=== PATIENT | female | born 1995 | race Caucasian/White ===

== ENCOUNTER → 2017-09-14 11:36 | Outpatient (CLI) | payer OTHER, SELFPAY ==
--- NOTE | 2017-09-14 11:37 | DI.US.S_ITS ---
PROCEDURE: US PELVIC COMPLETE INDICATIONS: PAIN; ENLARGED LEFT OVARY TECHNIQUE: Real-time scanning was performed of the pelvic organs, with image documentation. Additional endovaginal scanning was necessary due to incomplete visualization of the adnexal and endometrial structures by transabdominal scanning. COMPARISON: None. FINDINGS: Transabdominal scanning: Limited scanning through the kidneys shows no hydronephrosis. No pathologic free abdominal or pelvic fluid. Endovaginal scanning: Uterus: Uterus is normal in size at 7.2 x 5.4 x 4.5 cm. The endometrium measures 15.6mm in combined thickness. Ovaries: Normal bilaterally measuring 4.1 x 2.8 x 2.2 cm on the right and 2.9 x 2.3 x 1.4 cm on the left. Several small follicular cysts. IMPRESSION: Normal exam. Dictated by: Garrett HER Interpreted: Krishan Delatorre MD on 09/14/2017 at 13:01 Approved by: Krishan Delatorre M.D. on 09/14/2017 at 14:18
== END ==
PROVIDERS: Family Provider Family Medicine; PCP Family Medicine; Visit Provider Physician Assistant
DX: N83.8 Other noninflammatory disorders of ovary, fallopian tube and broad ligament (principal); R10.2 Pelvic and perineal pain
CPT/HCPCS: 76830; 76856

== ENCOUNTER 2017-09-16 16:14 | Emergency (ER) | payer OTHER, SELFPAY ==
[2017-09-16 16:18] VITALS: BP 103/62; PULSE 86; RESP 18; TEMP 36.7; O2SAT 100
--- NOTE | 2017-09-16 16:29 | ED.FEMALEGU ---
HPI - Female Genitourinary <Altagracia Fox PA-C - Last Filed: 09/16/17 20:44> General Chief complaint: Urogenital-Female Stated complaint: Kidney stones Time Seen by Provider: 09/16/17 16:28 Source: patient Mode of arrival: ambulatory Limitations: no limitations History of Present Illness HPI Narrative: This 21-year-old female was sent by the walk-in clinic apparently for further evaluation of micro hematuria. She complains of 3-4 days of suprapubic area pain with dysuria, frequency, and urgency. She has not seen any blood in the urine. She denies any flank pain. She denies any new fever. She has had some ongoing intermittent nausea and dizziness for the last couple of months but none currently. She has also had some intermittent right upper quadrant pain in the last month which she does not have now. She does not have vomiting. She denies any possibility of or STD concerns (she states last test for both were 2 weeks ago and she has not been sexually active since then). She states that she has some white vaginal discharge and has slight itching. She denies any other new complaints on systems review. She does have a family history of cystinuria in her father. Related Data Previous Rx's Medication Instructions Recorded citalopram [Celexa] 10 mg PO QDAY #90 tab 06/21/17 divalproex [Depakote] 750 mg PO QDAY #270 tab 06/21/17 meclizine 25 mg tablet 25 mg PO QID PRN #30 tab 08/03/17 nitrofurantoin monohyd/m-cryst 1 cap PO Q12H 5 Days #10 cap 09/16/17 [Macrobid] phenazopyridine [Pyridium] 200 mg PO Q8H PRN #6 tab 09/16/17 Allergies Allergy/AdvReac Type Severity Reaction Status Date / Time clonazepam [CLONAZEPAM] Allergy Unknown REACTION Verified 09/16/17 16:15 WHEN TAKING FOR SEIZURES topiramate [From TOPAMAX] Allergy Unknown REACTION Verified 09/16/17 16:15 WHEN TAKING FOR SEIZURES Review of Systems <Altagracia Fox PA-C - Last Filed: 09/16/17 20:44> Review of Systems All systems reviewed & are unremarkable except as noted in HPI and below Exam <Altagracia Fox PA-C - Last Filed: 09/16/17 20:44> Narrative Exam Narrative: GENERAL APPEARANCE: Patient sitting comfortably, in no distress, appears well. HEENT: EOMI, conjunctiva pink NECK: Supple LUNGS: Clear to auscultation bilaterally. HEART: Rate and rhythm regular without murmur, normal S1 and S2, no S3 or S4. ABDOMEN: Soft, ND, +BS x 4 quadrants, no CVAT. Localized suprapubic tenderness without guarding or rebound Initial Vital Signs Initial Vital Signs: Vital Signs Temperature 98.1 F 09/16/17 16:18 Pulse Rate 86 09/16/17 16:18 Respiratory Rate 18 09/16/17 16:18 Blood Pressure 103/62 09/16/17 16:18 Pulse Oximetry 100 09/16/17 16:18 <Lisbeth Zavala DO - Last Filed: 09/17/17 08:54> Initial Vital Signs Initial Vital Signs: Vital Signs Temperature 98.1 F 09/16/17 16:18 Pulse Rate 86 09/16/17 16:18 Respiratory Rate 18 09/16/17 16:18 Blood Pressure 103/62 09/16/17 16:18 Pulse Oximetry 100 09/16/17 16:18 Course <BELLE Walker Last Filed: 09/16/17 20:44> Orders Ordered: ED Orders 09/16/17 16:19 Urine Culture Stat Urine Microscopic Stat Vital Signs - 8 hr 09/16/17 16:18 09/16/17 17:43 Temperature 98.1 F Pulse Rate 86 77 Respiratory Rate 18 16 Blood Pressure 103/62 Blood Pressure [Left Arm] 101/54 L Pulse Oximetry 100 100 <Lisbeth Zavala DO - Last Filed: 09/17/17 08:54> Orders Ordered: ED Orders 09/16/17 16:19 Urine Culture Stat Urine Microscopic Stat Vital Signs - 8 hr 09/16/17 16:18 09/16/17 17:43 Temperature 98.1 F Pulse Rate 86 77 Respiratory Rate 18 16 Blood Pressure 103/62 Blood Pressure [Left Arm] 101/54 L Pulse Oximetry 100 100 MDM - Female Genitourinary <BELLE Walker Last Filed: 09/16/17 20:44> Lab Data Attestation: I reviewed the patient's lab results. Lab Results 09/16/17 Range/Units 16:19 Urine RBC 10-30/hpf H (0-5/HPF) Urine WBC 5-10/hpf H (0-5/HPF) Ur Squamous Epith Cells 1-5 /hpf Ur Renal Epithelial Cell 0-1/hpf Amorphous Sediment 1+ Urine Bacteria Occasional (0-1) (None) Ur Culture Indicated? Specimen cultured Micro UA Comment Not Reportable <Lisbeth Zavala, - Last Filed: 09/17/17 08:54> Lab Data Lab Results 09/16/17 Range/Units 16:19 Urine RBC 10-30/hpf H (0-5/HPF) Urine WBC 5-10/hpf H (0-5/HPF) Ur Squamous Epith Cells 1-5 /hpf Ur Renal Epithelial Cell 0-1/hpf Amorphous Sediment 1+ Urine Bacteria Occasional (0-1) (None) Ur Culture Indicated? Specimen cultured Micro UA Comment Not Reportable Discharge Plan Departure Patient Disposition: Home, Self-Care Clinical Impression: UTI (urinary tract infection) Discharge Date/Time: 09/16/17 17:48 Interventions: ED Discharge Assessment Last Done: 09/16/17 17:48 Instructions: DI for Urinary Tract Infection (UTI) Activity Restrictions/Additional Instructions: Return if you are feeling acutely worse as we talked about. You can use the bladder pain medicine for the next couple of days while you start the antibiotic. Also start an ajkw-juh-sqarrry medicine for yeast infection such as miconazole. You should follow up with your PCP in a few days to review cultures, and also discuss your ongoing abdominal pain, nausea, and dizziness that you have had off and on for the last couple of months. Prescriptions: New nitrofurantoin monohyd/m-cryst [Macrobid] 100 mg capsule 1 cap PO Q12H 5 Days Qty: 10 RF: 0 phenazopyridine [Pyridium] 200 mg tablet 200 mg PO Q8H PRN (Reason: pain) Qty: 6 RF: 0 No Action meclizine 25 mg tablet 25 mg PO QID PRN (Reason: vertigo) Qty: 30 RF: 1 citalopram [Celexa] 10 MG tablet 10 mg PO QDAY Qty: 90 RF: 1 divalproex [Depakote] 250 MG tablet,delayed release (DR/EC) 750 mg PO QDAY Qty: 270 RF: 1 Referrals: Samia Moore DO [Primary Care Provider] - <Lisbeth Zavala DO - Last Filed: 09/17/17 08:54> Cosign ED Attending Cosignature Attestation: I was immediately available in the department for consultation. Documentation has been reviewed. I agree with assessment and plan.
[2017-09-16 17:16] LABS: Amorphous Sediment Urine 1+; Bacteria Urine Occasional (0-1); Culture Indicated Urine Specimen Cultured; RBC Urine 10-30/HPF (0-5/HPF); Renal Epithelial Cells Urine 0-1/HPF; Squamous Epithelial Cell Urine 1-5 /HPF; WBC Urine 5-10/HPF (0-5/HPF)
[2017-09-16 17:43] VITALS: BP 101/54; PULSE 77; RESP 16; O2SAT 100
== END 2017-09-16 17:50 | disposition home or self-care (01) ==
LOC: ED 17:49
PROVIDERS: Emergency Provider Internal Medicine; Family Provider Family Medicine; PCP Family Medicine
DX: N39.0 Urinary tract infection, site not specified (principal)
CPT/HCPCS: 81003; 81015; 81025; 87086; 99282

== ENCOUNTER → 2017-09-19 11:40 | Outpatient (CLI) | payer OTHER, SELFPAY | PROVIDERS: Family Provider Family Medicine; PCP Family Medicine; Visit Provider Physician Assistant | DX: N39.0 Urinary tract infection, site not specified (principal); Z53.9 Procedure and treatment not carried out, unspecified reason | CPT/HCPCS: 87086 ==

== ENCOUNTER → 2017-09-19 17:16 | Outpatient (CLI) | payer OTHER, SELFPAY ==
--- NOTE | 2017-09-19 17:20 | DI.RAD.S_ITS ---
PROCEDURE: XR ABDOMEN MIN 2V INDICATIONS: Possible kidney stone RLQ/flank pain low back pain R side TECHNIQUE: 2 views of the abdomen were acquired. COMPARISON: None. FINDINGS: Surgical changes and devices: None. Bowel: No pneumoperitoneum. The bowel gas pattern is normal except for mild to moderate colonic obstipation. Soft tissues: No masses; visualized solid organ contours appear normal in size. No suspicious abdominal calcifications. There is a right-sided small apparent phlebolith adjacent to the right ischial spine. Bones: No suspicious bony abnormalities. IMPRESSION: Mild to moderate colonic obstipation. What appears to be a 1.5 x 2 mm right pelvic phlebolith is noted adjacent to the right ischial spine. Dictated by: Krishan Delatorre M.D. on 09/20/2017 at 8:19 Approved by: Krishan Delatorre M.D. on 09/20/2017 at 8:30
== END ==
PROVIDERS: Family Provider Family Medicine; PCP Family Medicine; Visit Provider Physician Assistant
DX: M54.5 Low back pain (principal); K59.00 Constipation, unspecified; R10.31 Right lower quadrant pain; N39.0 Urinary tract infection, site not specified
CPT/HCPCS: 74019; 87086

== ENCOUNTER → 2018-06-07 12:29 | Outpatient (CLI) | payer OTHER, SELFPAY ==
--- NOTE | 2018-06-07 12:32 | DI.CT.S_ITS ---
PROCEDURE: CT ABDOMEN PELVIS WO CON INDICATIONS: stone protocol - flank pain TECHNIQUE: Noncontrast 5 mm thick sections acquired from the diaphragms to the symphysis. 5 mm thick coronal and sagittal reformats were then performed. For radiation dose reduction, the following was used: automated exposure control, adjustment of mA and/or kV according to patient size. COMPARISON: None. FINDINGS: Image quality: Excellent. Lung bases: Lung bases are clear. Heart size is normal. Urinary system: Both kidneys are normal in size. No kidney stones. No hydronephrosis or perinephric fat stranding. Both ureters appear non-dilated throughout their expected courses. Bladder wall thickness is normal; no calcified bladder stones. Other solid organs: Liver is normal in size. Gallbladder appears normal. Pancreas is normal in contours. Spleen is normal in size. No adrenal nodules. Peritoneum and bowel: Unenhanced bowel loops demonstrate normal wall thickness and caliber. No free fluid or air. Nodes and vessels: No retroperitoneal or mesenteric adenopathy by size criteria. Aorta and inferior vena cava are normal in caliber. Abdominal wall: No ventral hernias. Pelvis: No free pelvic fluid. No inguinal hernias or adenopathy. Bones: No suspicious bony lesions. No vertebral body compression fractures. IMPRESSION: A urinary tract stone is not seen. No inflammation involving the kidneys appears present. Source of bilateral flank pain is not identified. Dictated by: Krishan Delatorre M.D. on 06/07/2018 at 17:09 Approved by: Krishan Delatorre M.D. on 06/07/2018 at 17:10
== END ==
PROVIDERS: Family Provider Family Medicine; PCP Family Medicine; Visit Provider Physician Assistant
DX: R10.9 Unspecified abdominal pain (principal)
CPT/HCPCS: 74176

== ENCOUNTER → 2018-12-13 09:43 | Outpatient (CLI) | payer OTHER, SELFPAY ==
[2018-12-13 11:01] LABS: Add Manual Diff / Slide Review NO; Basophils Absolute Auto 0 /uL (0-100); Basophils Percent Auto 0.2 % (0-2); Eosinophils Absolute Auto 100 /uL (0-450); Hematocrit 38.1 % (36-46); Lymphocytes Absolute Auto 1900 /uL (1100-4500); Lymphocytes Percent Auto 34.2 % (25-40); Mean Corpuscular HGB Conc 34.2 % (30-36); Mean Corpuscular Hemoglobin 30.7 PG (26-34); Mean Corpuscular Volume 89.7 fL (80-100); Monocytes Absolute Auto 700 /uL (0-900); Neutrophils Absolute Auto 2900 /uL (1500-7000); Neutrophils Percent Auto 52.6 % (50-75); Platelet Count 211 X10^3/uL (150-400); Red Blood Cell Count 4.25 X10^6/uL (4.0-5.2); Red Cell Distribution Width 12.2 % (11.6-14.8); White Blood Cell Count 5.6 X10^3/uL (4.5-11.0)
[2018-12-13 11:21] LABS: Alanine Aminotransferase 10 IU/L (9-52); Albumin Globulin Ratio 1.3 (1.0-2.8); Alkaline Phosphatase 49 U/L (38-126); Aspartate Aminotransferase 15 IU/L (14-36); BUN Creatinine Ratio 26.7 (6-22); Bilirubin Total 0.3 mg/dL (0.2-1.3); Blood Urea Nitrogen 16 mg/dL (7-17); Calcium 9.2 mg/dL (8.4-10.2); Carbon Dioxide 29 mmol/L (22-32); Chloride 102 mmol/L (98-107); Cholesterol 123 mg/dL (140-199); Estimated Glomerular Filt Rate > 60.0 mL/min (>60); Glucose 85 mg/dL (70-100); HDL Cholesterol 49 mg/dL (40-60); HEMOLYSIS < 15 (0-50); LDL Cholesterol Calculated 67 mg/dL (<100); Potassium 4.5 mmol/L (3.4-5.1); Sodium 139 mmol/L (137-145); Triglycerides 33 mg/dL (35-150)
[2018-12-13 11:48] LABS: Appearance Urine UA CLEAR; Bilirubin Urine UA NEGATIVE (NEGATIVE); Color Urine UA YELLOW; Glucose Urine UA NEGATIVE (Negative); Ketones Urine UA TRACE (NEGATIVE); Leukocyte Esterase Urine UA NEGATIVE (NEGATIVE); Nitrite Urine UA NEGATIVE (Negative); Occult Blood Urine UA 1+ (Negative); Protein Urine UA NEGATIVE (Negative); Specific Gravity Urine UA 1.025 (1.000-1.035); Urobilinogen Urine UA 0.2 E.U./dL (0.2)
[2018-12-13 11:49] LABS: Thyroid Stimulating Hormone 1.73 uIU/mL (0.47-4.68)
[2018-12-19 08:34] LABS: Valproic Acid (Depakene) Total 130.6 mg/L (50.0-100.0)
== END ==
PROVIDERS: PCP Family Medicine; Visit Provider Family Medicine
DX: Z00.00 Encounter for general adult medical examination without abnormal findings (principal); G40.909 Epilepsy, unspecified, not intractable, without status epilepticus; N94.6 Dysmenorrhea, unspecified
CPT/HCPCS: 36415; 80053; 80061; 80164; 81003; 84443; 85025

== ENCOUNTER → 2019-02-27 18:17 | Outpatient (CLI) | payer OTHER, SELFPAY | PROVIDERS: PCP Family Medicine; Visit Provider Family Medicine | DX: Z11.3 Encounter for screening for infections with a predominantly sexual mode of transmission (principal) | CPT/HCPCS: 87491; 87591 ==

== ENCOUNTER → 2019-04-26 11:15 | Outpatient (CLI) | payer OTHER, SELFPAY ==
[2019-05-02 15:27] LABS: C.trachomatis RNA NOT DETECTED; N.gonorrhoeae RNA NOT DETECTED
== END ==
PROVIDERS: PCP Family Medicine; Visit Provider Registered Nurse
DX: Z11.8 Encounter for screening for other infectious and parasitic diseases (principal); Z86.19 Personal history of other infectious and parasitic diseases
CPT/HCPCS: 87491; 87591

== ENCOUNTER → 2019-05-03 10:10 | Outpatient (CLI) | payer OTHER, SELFPAY ==
--- NOTE | 2019-05-03 10:12 | DI.US.S_ITS ---
PROCEDURE: US PELVIC COMPLETE INDICATIONS: CHECK IUD PLACEMENT TECHNIQUE: Real-time scanning was performed of the pelvic organs, with image documentation. Additional endovaginal scanning was necessary due to incomplete visualization of the adnexal and endometrial structures by transabdominal scanning. COMPARISON: [facility], , US PELVIC COMPLETE, 09/14/2017, 12:08. FINDINGS: Transabdominal scanning: Limited scanning through the kidneys shows no hydronephrosis. No pathologic free abdominal or pelvic fluid. Endovaginal scanning: Uterus: Uterus is normal in size at 7.8 x 3.7 x 5.2 cm. The endometrium measures 4 mm in combined thickness. An intrauterine device is identified in the endometrial cavity and appears to be appropriately positioned. Ovaries: Right ovary measures 4.7 x 2.9 x 3.2 cm. Simple right ovarian cyst measuring up to 2.9 cm in diameter. Left ovary measures 3.2 x 2.2 x 1.5 cm. No left-sided ovarian cysts adnexal mass lesions. Normal vascular waveforms identified in the bilateral ovary/adnexa. IMPRESSION: 1. An intrauterine device is present within the endometrial cavity and appears appropriately positioned. 2. Normal sonographic evaluation of the pelvis. The Dictated by: Scott Carr M.D. on 05/03/2019 at 15:22 Approved by: Scott Carr M.D. on 05/03/2019 at 15:25
== END ==
PROVIDERS: PCP Family Medicine; Visit Provider Registered Nurse
DX: T83.32XA Displacement of intrauterine contraceptive device, initial encounter (principal)
CPT/HCPCS: 76830; 76856

== ENCOUNTER → 2020-06-19 17:33 | Outpatient (CLI) | payer OTHER, SELFPAY ==
[2020-06-19 18:03] LABS: Hematocrit 36.7 % (36-46); Hemoglobin 12.8 g/dL (12.0-16.0); Mean Corpuscular HGB Conc 34.9 % (30-36); Mean Corpuscular Hemoglobin 31.4 PG (26-34); Mean Corpuscular Volume 90.1 fL (80-100); Platelet Count 268 X10^3/uL (150-400); Red Blood Cell Count 4.07 X10^6/uL (4.0-5.2); Red Cell Distribution Width 12.3 % (11.6-14.8); White Blood Cell Count 6.1 X10^3/uL (4.5-11.0)
[2020-06-19 18:17] LABS: Alanine Aminotransferase 29 IU/L (<35); Albumin 4.8 g/dL (3.5-5.0); Albumin Globulin Ratio 1.7 (1.0-2.8); Alkaline Phosphatase 61 U/L (38-126); Aspartate Aminotransferase 28 IU/L (14-36); BUN Creatinine Ratio 26.1 (6-22); Bilirubin Total 0.3 mg/dL (0.2-1.3); Blood Urea Nitrogen 18 mg/dL (7-17); Calcium 8.9 mg/dL (8.4-10.2); Carbon Dioxide 24 mmol/L (22-32); Chloride 105 mmol/L (98-107); Estimated Glomerular Filt Rate > 60.0 mL/min (>60); Globulin 2.8 g/dL (1.7-4.1); Glucose 98 mg/dL (70-100); HEMOLYSIS < 15 (0-50); Potassium 3.4 mmol/L (3.4-5.1); Sodium 139 mmol/L (137-145); Total Protein 7.6 g/dL (6.3-8.2)
[2020-06-23 10:07] LABS: Zonisamide 21.7 ug/mL (10.0-40.0)
== END ==
PROVIDERS: PCP Nurse Practitioner Family; Referring Provider Pediatrics; Visit Provider Pediatrics
DX: G40.309 Generalized idiopathic epilepsy and epileptic syndromes, not intractable, without status epilepticus (principal)
CPT/HCPCS: 36415; 80053; 80203; 85027

== ENCOUNTER → 2021-11-09 14:42 | Outpatient (CLI) | payer OTHER, SELFPAY ==
[2021-11-09 15:16] LABS: Add Manual Diff / Slide Review NO; Basophils Absolute Auto 0 /uL (0-100); Basophils Percent Auto 0.5 % (0-2); Eosinophils Absolute Auto 100 /uL (0-450); Eosinophils Percent Auto 1.3 % (2-4); Hematocrit 35.2 % (36-46); Hemoglobin 12.5 g/dL (12.0-16.0); Lymphocytes Absolute Auto 1700 /uL (1100-4500); Lymphocytes Percent Auto 23.9 % (25-40); Mean Corpuscular HGB Conc 35.7 % (30-36); Mean Corpuscular Hemoglobin 31.3 PG (26-34); Mean Corpuscular Volume 87.7 fL (80-100); Monocytes Absolute Auto 500 /uL (0-900); Monocytes Percent Auto 6.7 % (3-14); Neutrophils Absolute Auto 4900 /uL (1500-7000); Neutrophils Percent Auto 67.6 % (50-75); Platelet Count 244 X10^3/uL (150-400); Red Blood Cell Count 4.01 X10^6/uL (4.0-5.2); Red Cell Distribution Width 12.4 % (11.6-14.8); White Blood Cell Count 7.2 X10^3/uL (4.5-11.0)
[2021-11-09 15:40] LABS: Alanine Aminotransferase 20 IU/L (<35); Albumin 3.9 g/dL (3.5-5.0); Albumin Globulin Ratio 1.5 (1.0-2.8); Alkaline Phosphatase 54 U/L (38-126); Aspartate Aminotransferase 19 IU/L (14-36); BUN Creatinine Ratio 17.3 (6-22); Bilirubin Total 0.4 mg/dL (0.2-1.3); Blood Urea Nitrogen 14 mg/dL (7-17); Calcium 8.4 mg/dL (8.4-10.2); Carbon Dioxide 25 mmol/L (22-32); Chloride 105 mmol/L (98-107); Estimated Glomerular Filt Rate > 60 mL/min (>60); Globulin 2.6 g/dL (1.7-4.1); Glucose 93 mg/dL (70-100); HEMOLYSIS < 15 (0-50); Potassium 3.9 mmol/L (3.4-5.1); Sodium 136 mmol/L (137-145); Total Protein 6.5 g/dL (6.3-8.2)
[2021-11-11 14:22] LABS: Zonisamide 14.2 ug/mL (10.0-40.0)
[2021-11-12 16:03] LABS: Lacosamide 2.6 ug/mL (5.0-10.0)
== END ==
PROVIDERS: PCP Nurse Practitioner Family; Referring Provider Pediatrics; Visit Provider Pediatrics
DX: G40.319 Generalized idiopathic epilepsy and epileptic syndromes, intractable, without status epilepticus (principal)
CPT/HCPCS: 36415; 80053; 80203; 80235; 85025

== ENCOUNTER → 2021-12-21 12:58 | Outpatient (CLI) | payer OTHER, SELFPAY ==
[2021-12-21 13:30] LABS: Add Manual Diff / Slide Review NO; Basophils Absolute Auto 0 /uL (0-100); Basophils Percent Auto 0.3 % (0-2); Eosinophils Absolute Auto 100 /uL (0-450); Eosinophils Percent Auto 1.6 % (2-4); Hematocrit 35.7 % (36-46); Hemoglobin 12.8 g/dL (12.0-16.0); Lymphocytes Absolute Auto 1800 /uL (1100-4500); Lymphocytes Percent Auto 29.4 % (25-40); Mean Corpuscular HGB Conc 35.8 % (30-36); Mean Corpuscular Hemoglobin 31.2 PG (26-34); Monocytes Absolute Auto 500 /uL (0-900); Monocytes Percent Auto 8.1 % (3-14); Neutrophils Absolute Auto 3700 /uL (1500-7000); Neutrophils Percent Auto 60.6 % (50-75); Platelet Count 238 X10^3/uL (150-400); Red Cell Distribution Width 11.8 % (11.6-14.8)
[2021-12-21 13:43] LABS: Alanine Aminotransferase 25 IU/L (<35); Albumin 4.2 g/dL (3.5-5.0); Albumin Globulin Ratio 1.4 (1.0-2.8); Alkaline Phosphatase 60 U/L (38-126); Aspartate Aminotransferase 21 IU/L (14-36); BUN Creatinine Ratio 15.6 (6-22); Bilirubin Total 0.4 mg/dL (0.2-1.3); Blood Urea Nitrogen 10 mg/dL (7-17); Calcium 8.9 mg/dL (8.4-10.2); Carbon Dioxide 26 mmol/L (22-32); Chloride 105 mmol/L (98-107); Estimated Glomerular Filt Rate > 60 mL/min (>60); Globulin 3.1 g/dL (1.7-4.1); Glucose 92 mg/dL (70-100); HEMOLYSIS < 15 (0-50); Potassium 3.9 mmol/L (3.4-5.1); Sodium 139 mmol/L (137-145); Total Protein 7.3 g/dL (6.3-8.2)
[2021-12-23 01:44] LABS: Zonisamide 16.2 ug/mL (10.0-40.0)
== END ==
PROVIDERS: PCP Nurse Practitioner; Referring Provider Pediatrics; Visit Provider Pediatrics
DX: G40.309 Generalized idiopathic epilepsy and epileptic syndromes, not intractable, without status epilepticus (principal)
CPT/HCPCS: 36415; 80053; 80203; 80235; 85025

== ENCOUNTER → 2022-03-09 13:03 | Outpatient (CLI) | payer OTHER, SELFPAY ==
[2022-03-09 17:34] LABS: Free T3, Triiodothyronine Free 3.56 pg/mL (2.77-5.27); Free T4, Direct Thyroxine 1.11 ng/dL (0.78-2.19)
[2022-03-09 17:48] LABS: Thyroid Stimulating Hormone 0.708 uIU/mL (0.47-4.68)
== END ==
PROVIDERS: PCP Nurse Practitioner; Referring Provider Nurse Practitioner; Visit Provider Nurse Practitioner
DX: K59.00 Constipation, unspecified (principal); R19.4 Change in bowel habit
CPT/HCPCS: 36415; 84439; 84443; 84481

== ENCOUNTER 2022-07-12 08:49 | Day surgery (SDC) | payer OTHER, SELFPAY ==
[2022-07-12] MEDS: LACTATED RINGERS 1,000 ML 100 ML IV (09:38)
[2022-07-12 09:45] VITALS: BP 106/60; PULSE 88; RESP 16; TEMP 36.8; O2SAT 100; BMI 20.7
--- NOTE | 2022-07-12 09:48 | PM.HP.1 ---
History of Present Illness History of Present Illness Date Patient Seen: 07/12/22 Time Patient Seen: 09:48 Chief complaint: Dx Colonoscopy Narrative: Constipation anal pain. There has been some improvement in output but still patient reports firm stools that are painful at defecation. [facility] Medical History Anxiety (Unknown) Asthma Depression (Unknown) Epilepsy (Unknown) Mild intermittent allergic asthma without complication (04/2018) Retroversion, uterus Surgical History H/O wrist surgery Family History Grandfather Cancer Grandmother Cancer Father Cystinuria Mother No problems noted. Social History Smoking Status: Never smoker alcohol intake: never substance use type: does not use Meds Home Medications and Allergies Home Medications Medication Instructions Recorded Confirmed Type albuterol sulfate 90 mcg/actuation 2 puff inhalation Q4-6H PRN 01/11/22 07/12/22 Rx aerosol inhaler shortness of breath or wheezing #8.5 grams docusate sodium 100 mg capsule 100 mg PO DAILY #90 caps 01/11/22 07/12/22 Rx (Colace) glycerin (adult) 1 supp TX DAILY PRN constipation 01/11/22 05/06/22 Rx #25 ea lacosamide 100 mg tablet 100 mg PO BID 01/11/22 07/12/22 History zonisamide 100 mg capsule 300 mg PO DAILY 01/11/22 07/12/22 History Saccharomyces boulardii 250 mg 10,000 mmu cells PO DAILY 02/04/22 07/12/22 History capsule (Digest Probiotic (S.boulardii)) hydrocortisone acetate 30 mg 30 mg TX BID PRN anal pain #12 ea 05/06/22 05/06/22 Rx rectal suppository Allergies Allergy/AdvReac Type Severity Reaction Status Date / Time clonazepam [CLONAZEPAM] Allergy Unknown REACTION Verified 07/12/22 09:24 WHEN TAKING FOR SEIZURES topiramate [From TOPAMAX] Allergy Unknown REACTION Verified 07/12/22 09:24 WHEN TAKING FOR SEIZURES Review of Systems Review of Systems ROS: Yes All systems reviewed with the patient and are negative except as otherwise documented Exam Const General: cooperative HENMT Head: normal to inspection Eyes General: appearance normal, both eyes and all related structures Neck Neck: normal visual inspection Chest Chest: normal inspection of the chest Resp Effort & Inspection: normal respiratory effort Cardio Rate: regular rate GI Inspection: normal to inspection Skin General: no rashes or lesions noted Neuro General: patient alert and patient awake Extrem General: normal to inspection and no pedal edema Psych Appearance: grossly normal Assessment & Plan Assessment & Plan narrative: 26-year-old female with constipation remote rectal bleeding possible fissure reporting for colonoscopy. This will be pursued today.
--- NOTE | 2022-07-12 09:50 | PM.PREOP ---
Pre-operative Note Interval Note History & Physical reviewed/Exam performed by Physician: Yes Changes to H&P: No ASA Class (for procedural sedation): II
--- NOTE | 2022-07-12 10:50 | P.OP.COLON_ITS ---
Operative Date/Time/Diagnoses Date of procedure: 07/12/22 Time of procedure: 10:50 Pre-op diagnosis: Constipation, rectal bleeding, anal pain with bowel movements Post-op diagnosis: same Procedure & Clinicians Study performed: Colonoscopy Same procedure as scheduled: Yes Indications: Constipation, rectal bleeding, anal pain with bowel movements Surgeon: David Lowry Procedure Notes SCOAP/Timeout: Done Procedure in detail: After the risks and benefits were explained, written and verbal informed consent was obtained. The patient was brought into the procedure room and placed into the left lateral decubitus position. Please see anesthesia notes for sedation details. Digital rectal examination was accomplished. The scope was introduced into the patient and advanced under direct visualization to the cecum as identified by the appendiceal orifice and ileocecal valve. The scope was slowly withdrawn to carefully examine the mucosa for any defects or lesions. Comprehensive imaging was accomplished throughout the rectum including the dentate line. The colon was decompressed, the scope was then removed from the patient who tolerated the procedure well. Pediatric colonoscope Bowel prep adequate Scope withdrawal time: 8 minutes Sedation minutes: 17 Specimen(s): none sent Complications: none Impression: The patient had a fairly tortuous sigmoid colon. Navigation through this location was somewhat challenging. No evidence of procto colitis. The TI was i nterrogated. No evidence of significant terminal ileal abnormality. Grade 1 internal hemorrhoids. No significant acute anal fissure at this time. Endoscopic diagnosis 1. Twisty left colon 2. Grade 1 hemorrhoids 3. Otherwise visually normal colonoscopy Post-procedure Plan for aftercare: 1. Continue with a fiber based bowel regimen for soft regular stools. 2. Follow up GI clinic to report on progress in the weeks ahead. Disposition: PACU
[2022-07-12 10:52] VITALS: BP 85/38; PULSE 76; RESP 16; TEMP 36.3; O2SAT 97
[2022-07-12 10:57] VITALS: BP 92/40; PULSE 79; RESP 16; O2SAT 100
[2022-07-12 11:02] VITALS: BP 101/34; PULSE 74; RESP 16; O2SAT 100
[2022-07-12 11:05] VITALS: BP 102/34; PULSE 75; RESP 14; TEMP 36.4; O2SAT 100
[2022-07-12 11:20] VITALS: BP 100/60; PULSE 98; RESP 16; TEMP 36.8; O2SAT 100
== END 2022-07-12 11:27 | disposition home or self-care (01) ==
PROVIDERS: PCP Nurse Practitioner; Referring Provider Internal Medicine Gastroenterology; Visit Provider Internal Medicine Gastroenterology
PROC: 0DJD8ZZ Inspection of Lower Intestinal Tract, Via Natural or Artificial Opening Endoscopic (ICD-10-PCS; CPT 45378; principal; 2022-07-12 10:00)
DX: K62.5 Hemorrhage of anus and rectum (principal); K59.00 Constipation, unspecified; K64.0 First degree hemorrhoids
CPT/HCPCS: 45378; J2704

== ENCOUNTER → 2023-01-18 17:21 | Outpatient (CLI) | payer OTHER, SELFPAY ==
[2023-01-18 18:45] LABS: Alanine Aminotransferase 20 IU/L (<35); Albumin 4.4 g/dL (3.5-5.0); Albumin Globulin Ratio 1.5 (1.0-2.8); Alkaline Phosphatase 59 U/L (38-126); Aspartate Aminotransferase 22 IU/L (14-36); BUN Creatinine Ratio 18.2 (6-22); Bilirubin Total 0.3 mg/dL (0.2-1.3); Blood Urea Nitrogen 12 mg/dL (7-17); Calcium 9.1 mg/dL (8.4-10.2); Carbon Dioxide 23 mmol/L (22-32); Chloride 101 mmol/L (98-107); Estimated Glomerular Filt Rate > 60 mL/min (>60); Globulin 2.9 g/dL (1.7-4.1); Glucose 85 mg/dL (70-100); HEMOLYSIS < 15 (0-50); Potassium 3.7 mmol/L (3.4-5.1); Sodium 134 mmol/L (137-145); Total Protein 7.3 g/dL (6.3-8.2)
[2023-01-21 14:25] LABS: Zonisamide 12.5 ug/mL (10.0-40.0)
[2023-01-21 20:32] LABS: Lacosamide 6.6 ug/mL (5.0-10.0)
== END ==
PROVIDERS: PCP Nurse Practitioner; Referring Provider Pediatrics; Visit Provider Pediatrics
DX: G40.309 Generalized idiopathic epilepsy and epileptic syndromes, not intractable, without status epilepticus (principal)
CPT/HCPCS: 36415; 80053; 80203; 80235

== ENCOUNTER → 2023-01-25 18:22 | Outpatient (CLI) | payer OTHER, SELFPAY | PROVIDERS: PCP Nurse Practitioner; Visit Provider Physician Assistant | DX: J02.9 Acute pharyngitis, unspecified (principal) | CPT/HCPCS: 87070 ==

== ENCOUNTER → 2023-01-26 07:49 | Outpatient (CLI) | payer OTHER, SELFPAY ==
[2023-01-26 08:27] LABS: Monotest Positive (Negative)
[2023-01-26 08:42] LABS: Alanine Aminotransferase 33 IU/L (<35); Albumin 4.1 g/dL (3.5-5.0); Albumin Globulin Ratio 1.5 (1.0-2.8); Alkaline Phosphatase 56 U/L (38-126); Aspartate Aminotransferase 27 IU/L (14-36); BUN Creatinine Ratio 20.3 (6-22); Bilirubin Total 0.3 mg/dL (0.2-1.3); Blood Urea Nitrogen 15 mg/dL (7-17); Calcium 9.1 mg/dL (8.4-10.2); Carbon Dioxide 24 mmol/L (22-32); Chloride 104 mmol/L (98-107); Estimated Glomerular Filt Rate > 60 mL/min (>60); Globulin 2.8 g/dL (1.7-4.1); Glucose 85 mg/dL (70-100); HEMOLYSIS < 15 (0-50); Potassium 3.8 mmol/L (3.4-5.1); Sodium 137 mmol/L (137-145); Total Protein 6.9 g/dL (6.3-8.2)
[2023-01-26 08:49] LABS: Add Manual Diff / Slide Review NO; Basophils Absolute Auto 0 /uL (0-100); Basophils Percent Auto 0.3 % (0-2); Eosinophils Absolute Auto 100 /uL (0-450); Eosinophils Percent Auto 0.9 % (2-4); Hematocrit 38.3 % (36-46); Hemoglobin 13.6 g/dL (12.0-16.0); Lymphocytes Absolute Auto 3900 /uL (1100-4500); Lymphocytes Percent Auto 52.2 % (25-40); Mean Corpuscular HGB Conc 35.6 % (30-36); Mean Corpuscular Hemoglobin 31.4 PG (26-34); Mean Corpuscular Volume 88.3 fL (80-100); Monocytes Absolute Auto 600 /uL (0-900); Monocytes Percent Auto 8.1 % (3-14); Neutrophils Absolute Auto 2800 /uL (1500-7000); Neutrophils Percent Auto 38.5 % (50-75); Platelet Count 183 X10^3/uL (150-400); Red Blood Cell Count 4.34 X10^6/uL (4.0-5.2); Red Cell Distribution Width 12.1 % (11.6-14.8); White Blood Cell Count 7.4 X10^3/uL (4.5-11.0)
== END ==
PROVIDERS: PCP Nurse Practitioner; Referring Provider Physician Assistant; Visit Provider Physician Assistant
DX: R53.83 Other fatigue (principal); R59.0 Localized enlarged lymph nodes
CPT/HCPCS: 36415; 80053; 85025; 86318

== ENCOUNTER 2023-02-01 09:58 | Emergency (ER) | payer OTHER, SELFPAY ==
[2023-02-01 10:00] VITALS: BP 118/66; PULSE 87; RESP 14; TEMP 36.9; O2SAT 99; BMI 20.9
--- NOTE | 2023-02-01 10:21 | ED.URI ---
HPI - URI/Sore Throat General Chief Complaint: Upper Respiratory Symptoms Stated Complaint: has Arthur per pt, pain when swallowing/fever Time Seen by Provider: 02/01/23 10:03 Source: patient Mode of arrival: Ambulatory History of Present Illness HPI Narrative: 27-year-old female with medical history of seizure disorder presents for sore throat and swollen lymph nodes. Patient has confirmed mono infection from primary. She is been taking Tylenol and Motrin and drinking to use for pain but still has discomfort when swallowing. Able to eat and drink. Tolerating secretions currently. Related Data Home Medications Medication Instructions Recorded Confirmed lacosamide 100 mg tablet 100 mg PO BID 01/11/22 01/25/23 zonisamide 100 mg capsule 300 mg PO DAILY 01/11/22 01/25/23 Saccharomyces boulardii 250 mg 10,000 mmu cells PO DAILY 02/04/22 01/25/23 capsule (Digest Probiotic (S.boulardii)) Previous Rx's Medication Instructions Recorded albuterol sulfate 90 mcg/actuation 2 puff inhalation Q4-6H PRN 01/11/22 aerosol inhaler shortness of breath or wheezing #8.5 grams docusate sodium 100 mg capsule 100 mg PO DAILY #90 caps 01/11/22 (Colace) glycerin (adult) 1 supp HI DAILY PRN constipation 01/11/22 #25 ea hydrocortisone acetate 30 mg 30 mg HI BID PRN anal pain #12 ea 05/06/22 rectal suppository dexamethasone 4 mg tablet 4 mg PO .once #2 tabs 02/01/23 Allergies Allergy/AdvReac Type Severity Reaction Status Date / Time clonazepam [CLONAZEPAM] Allergy Unknown REACTION Verified 02/01/23 10:03 WHEN TAKING FOR SEIZURES topiramate [From TOPAMAX] Allergy Unknown REACTION Verified 02/01/23 10:03 WHEN TAKING FOR SEIZURES Review of Systems Review of Systems Narrative: Negative except as noted above Patient History Medical History Asthma Mild intermittent allergic asthma without complication (04/2018) Retroversion, uterus Depression (Unknown) Anxiety (Unknown) Epilepsy (Unknown) Surgical History H/O wrist surgery Family History Grandfather Cancer Grandmother Cancer Father Cystinuria Mother No problems noted. Social History household members: family Smoking Status: Never smoker alcohol intake: never substance use type: does not use Smoking Status: Never smoker alcohol intake frequency: 0-2 drinks per day Substance Use Type: does not use Exam Initial Vital Signs Initial Vital Signs: Vital Signs Temperature 98.4 F 02/01/23 10:00 Pulse Rate 87 02/01/23 10:00 Respiratory Rate 14 02/01/23 10:00 Blood Pressure 118/66 02/01/23 10:00 Pulse Oximetry 99 02/01/23 10:00 Oxygen Delivery Method Room Air 02/01/23 10:00 Const: Awake, alert, no acute distress, nontoxic appearing Eyes: PERRL, EOMI, conjunctiva normal ENT: Atraumatic, dentition normal, mucous membranes moist, 3+ tonsillar edema, no exudates, no drooling, no pooling of secretions Cardiac: regular rate, regular rhythm RESP: unlabored, clear bilaterally, no wheezing GI: Atraumatic, soft, nontender, nondistended, no rebound, no guarding MSK: Atraumatic, full range of motion, pulses equal Skin: Warm, Dry, intact, no rashes Neuro: AO x3, CN II-XII grossly intact, moves all extremities Psych: affect normal, mood normal, not suicidal, not homicidal Course Course Course Narrative: Tonsillitis, confirmed mono infection. Tolerating secretions, no evidence of peritonsillar abscess. Patient is sitting comfortably in ED recliner in no acute distress. We will give Decadron for tonsillar swelling, however since this is a viral illness treatment will be conservative. Recommended continuing Tylenol and Motrin as needed for discomfort and ensuring that she drinks plenty of fluids. The anticipatory course of mono was discussed with the patient, recommended avoidance of contact sports for 2 months after infection due to potential splenomegaly. Orders Ordered: Discontinued Medications Dexamethasone (Dexamethasone 10 Mg/Ml Vial) 10 mg PO NOW ONE Stop: 02/01/23 10:21 Last Admin: 02/01/23 10:30 Dose: 10 mg Documented By: JOHANNE Ketorolac Tromethamine (Ketorolac 30 Mg/Ml Vial) 30 mg IM NOW ONE Stop: 02/01/23 10:21 Last Admin: 02/01/23 10:30 Dose: 30 mg Documented By: JOHANNE Vital Signs Vital signs: Vital Signs - 8 hr 02/01/23 10:00 02/01/23 10:37 Temperature 98.4 F Pulse Rate 87 84 Respiratory Rate 14 18 Blood Pressure 118/66 120/60 Pulse Oximetry 99 98 Oxygen Delivery Method Room Air Room Air Discharge Plan Departure Patient Disposition: Home Clinical Impression: Mononucleosis syndrome Pharyngitis Qualifiers: Pharyngitis/tonsillitis etiology: infectious mononucleosis Qualified Code(s): B27.90 - Infectious mononucleosis, unspecified without complication Instructions: Mononucleosis Activity Restrictions/Additional Instructions: AVOID CONTACT SPORTS FOR 2 MONTHS. CONTINUE TO TAKE TYLENOL AND MOTRIN NEEDED FOR PAIN/FEVER. FOLLOW UP WITH YOUR PRIMARY CARE PHYSICIAN Prescriptions: New dexamethasone 4 mg tablet 4 mg PO .once Qty: 2 0RF No Action docusate sodium [Colace] 100 mg capsule 100 mg PO DAILY Qty: 90 3RF Rx Instructions: Take 1 cap daily for constipation, HOLD for diarrhea glycerin (adult) Suppository 1 supp HI DAILY PRN (Reason: constipation) Qty: 25 2RF Rx Instructions: Insert 1 suppository rectally daily as needed for hard stool lacosamide 100 mg tablet 100 mg PO BID zonisamide 100 mg capsule 300 mg PO DAILY albuterol sulfate 90 mcg/actuation HFA aerosol inhaler 2 puff INHALATION Q4-6H PRN (Reason: shortness of breath or wheezing) Qty: 8.5 3RF Saccharomyces boulardii [Digest Probiotic (S.boulardii)] 250 mg capsule 10,000 mmu cells PO DAILY hydrocortisone acetate 30 mg suppository 30 mg HI BID PRN (Reason: anal pain) Qty: 12 1RF Rx Instructions: Insert rectally with generous lubricant up to 2x/day as needed for rectal pain Referrals: Deborah Penn ARNP [Primary Care Provider] - Stand Alone Forms: Patient Portal/API
[2023-02-01] MEDS: KETOROLAC 30 MG/ML VIAL IM (10:30)
[2023-02-01] MEDS: DEXAMETHASONE 10 MG/ML VIAL PO (10:30)
[2023-02-01 10:37] VITALS: BP 120/60; PULSE 84; RESP 18; O2SAT 98
== END 2023-02-01 10:53 | disposition home or self-care (01) ==
PROVIDERS: Emergency Provider Emergency Medicine; PCP Nurse Practitioner
DX: B27.90 Infectious mononucleosis, unspecified without complication (principal)
CPT/HCPCS: 96372; 99283; J1100; J1885

== ENCOUNTER → 2023-07-15 11:02 | Outpatient (CLI) | payer OTHER, SELFPAY ==
[2023-07-15 12:03] LABS: Add Manual Diff / Slide Review NO; Basophils Absolute Auto 0 /uL (0-100); Basophils Percent Auto 0.3 % (0-2); Eosinophils Absolute Auto 100 /uL (0-450); Eosinophils Percent Auto 1.7 % (2-4); Hematocrit 37.5 % (36-46); Hemoglobin 13.3 g/dL (12.0-16.0); Lymphocytes Absolute Auto 1900 /uL (1100-4500); Mean Corpuscular HGB Conc 35.4 % (30-36); Mean Corpuscular Volume 87.6 fL (80-100); Monocytes Absolute Auto 500 /uL (0-900); Monocytes Percent Auto 5.4 % (3-14); Neutrophils Absolute Auto 6000 /uL (1500-7000); Neutrophils Percent Auto 70.6 % (50-75); Platelet Count 231 X10^3/uL (150-400); Red Blood Cell Count 4.28 X10^6/uL (4.0-5.2); Red Cell Distribution Width 12.3 % (11.6-14.8); White Blood Cell Count 8.5 X10^3/uL (4.5-11.0)
[2023-07-15 13:14] LABS: Bilirubin Urine UA NEGATIVE (NEGATIVE); Color Urine UA YELLOW; Glucose Urine UA NEGATIVE (Negative); Ketones Urine UA NEGATIVE (NEGATIVE); Leukocyte Esterase Urine UA 1+ (NEGATIVE); Nitrite Urine UA NEGATIVE (Negative); Occult Blood Urine UA NEGATIVE (Negative); Protein Urine UA NEGATIVE (Negative); Specific Gravity Urine UA >=1.030 (1.000-1.035); Urobilinogen Urine UA 0.2 E.U./dL (0.2)
[2023-07-15 13:18] LABS: Appearance Urine UA CLOUDY; pH Urine UA 6.5 (4.5-8.0)
[2023-07-15 13:21] LABS: Urine Volume 10mL (spun)
[2023-07-15 13:22] LABS: Amorphous Sediment Urine 3+; Bacteria Urine Many (>30); Culture Indicated Urine Cult Not Indicated; RBC Urine None Seen (0-5/HPF); Squamous Epithelial Cell Urine >30 /HPF (0-5/HPF); WBC Urine 1-5/HPF (0-5/HPF)
[2023-07-16 05:02] LABS: RPR Screen Non Reactive (Non Reactive)
[2023-07-16 10:12] LABS: Varicella IgG Antibody 418 index (Immune >165)
[2023-07-18 07:35] LABS: Hepatitis B Surface Antigen NEGATIVE s/c (NEGATIVE); Rubella Antibody IgG 36.6 IU/mL (>15)
[2023-07-18 07:52] LABS: HIV 1 & 2 Ab/Ag 4th Gen Combo NEGATIVE (NEGATIVE); Hep C Virus Ab w/Reflex Quant NEGATIVE s/c (NEGATIVE)
== END ==
PROVIDERS: PCP Nurse Practitioner; Referring Provider Obstetrics & Gynecology; Visit Provider Specialist
DX: Z34.00 Encounter for supervision of normal first pregnancy, unspecified trimester (principal); R39.15 Urgency of urination; R35.0 Frequency of micturition
CPT/HCPCS: 36415; 80055; 81001; 86787; 86803; 86850; 86900; 86901; 87077; 87086; 87186; 87389

== ENCOUNTER → 2023-07-20 08:22 | Outpatient (CLI) | payer OTHER, SELFPAY ==
[2023-07-20 09:38] LABS: Natera Collection Specimen Collected
== END ==
PROVIDERS: PCP Nurse Practitioner; Referring Provider Specialist; Visit Provider Specialist
DX: Z34.01 Encounter for supervision of normal first pregnancy, first trimester (principal); Z3A.11 11 weeks gestation of pregnancy
CPT/HCPCS: 36415

== ENCOUNTER → 2023-08-03 09:19 | Outpatient (CLI) | payer OTHER, SELFPAY ==
[2023-08-03 10:30] LABS: Alanine Aminotransferase 23 IU/L (<35); Albumin 3.9 g/dL (3.5-5.0); Albumin Globulin Ratio 1.4 (1.0-2.8); Alkaline Phosphatase 40 U/L (38-126); Aspartate Aminotransferase 21 IU/L (14-36); BUN Creatinine Ratio 16.1 (6-22); Bilirubin Total 0.3 mg/dL (0.2-1.3); Blood Urea Nitrogen 9 mg/dL (7-17); Calcium 8.9 mg/dL (8.4-10.2); Carbon Dioxide 22 mmol/L (22-32); Chloride 108 mmol/L (98-107); Estimated Glomerular Filt Rate > 60 mL/min (>60); Globulin 2.7 g/dL (1.7-4.1); Glucose 68 mg/dL (70-100); HEMOLYSIS < 15 (0-50); Potassium 3.4 mmol/L (3.4-5.1); Sodium 135 mmol/L (137-145); Total Protein 6.6 g/dL (6.3-8.2)
[2023-08-03 10:36] LABS: Hemoglobin 11.9 g/dL (12.0-16.0); Mean Corpuscular HGB Conc 35.9 % (30-36); Mean Corpuscular Hemoglobin 31.6 PG (26-34); Mean Corpuscular Volume 87.8 fL (80-100); Platelet Count 195 X10^3/uL (150-400); Red Blood Cell Count 3.76 X10^6/uL (4.0-5.2); Red Cell Distribution Width 12.4 % (11.6-14.8); White Blood Cell Count 6.3 X10^3/uL (4.5-11.0)
[2023-08-07 15:56] LABS: Lacosamide 6.9 ug/mL (5.0-10.0)
== END ==
PROVIDERS: PCP Nurse Practitioner; Referring Provider Pediatrics; Visit Provider Pediatrics
DX: G40.319 Generalized idiopathic epilepsy and epileptic syndromes, intractable, without status epilepticus (principal)
CPT/HCPCS: 36415; 80053; 80203; 80235; 85027

== ENCOUNTER → 2023-08-31 11:32 | Outpatient (CLI) | payer OTHER, SELFPAY ==
[2023-09-02 23:14] LABS: AFP Value 33.3 ng/mL (.); Gest Age on Col Date 16.7 weeks (.); Insulin Dep Diabetes No (.); OSBR Risk 1IN 10000 (.); Results Report (.); Test Results *Screen Negative* (.)
== END ==
PROVIDERS: PCP Nurse Practitioner; Referring Provider Obstetrics & Gynecology; Visit Provider Obstetrics & Gynecology
DX: Z34.02 Encounter for supervision of normal first pregnancy, second trimester (principal); Z3A.16 16 weeks gestation of pregnancy
CPT/HCPCS: 36415; 82105

== ENCOUNTER → 2023-09-23 15:24 | Outpatient (CLI) | payer OTHER, SELFPAY ==
--- NOTE | 2023-09-23 15:25 | DI.US.S_ITS ---
PROCEDURE: US OB >= 14 WEEKS FETUS INDICATIONS: 20 Week Anatomy Scan OUTSIDE/PRIOR DATING DATA: Last menstrual period (LMP): 05/06/23. LMP-based estimated date of delivery (REY): 02/10/24. First dating scan (date and location): 07/06/23. Estimated date of delivery (REY) from first dating scan: 02/10/24. TECHNIQUE: Real-time scanning was performed of the fetus, with image documentation and biometric measurements. Endovaginal scanning: Not performed COMPARISON: None. FINDINGS: General: A single living intrauterine gestation is present. Presentation: Vertex. Placenta: Placental position is posterior , without previa. Amniotic fluid index: 15.0 cm, normal range is 5-24 cm. Single deepest vertical pocket is 4.3 cm. heart rate: 137 beats per minute. Maternal cervical canal: Closed and 2.6 cm long. Normal lower limit is 2.5 cm. biometrics: Biparietal diameter: 4.8 cm, 20 weeks four days Head circumference: 18.4 cm, 20 weeks five days Abdominal circumference: 15.8 cm, 20 weeks six days Femur length: 3.0 cm, 19 weeks three days Clinically estimated gestational age: 20 weeks 0 days Composite gestational age from present scan: 20 weeks three days Estimated weight and percentile: 342 g, 60th percentile Anatomic survey: Neuro: Ventricles are non-dilated at less than 10 mm. Cisterna magna is normal at 3-11 mm. Cerebellum is normal in size and morphology. Nuchal skin fold: Not well seen due to position. Face: Nose and lips, facial profile are normal. Spine: Not well seen due to position. Heart: 4-chambered heart is present, with normal left ventricular outflow tract. The right ventricular outflow tract was not well seen. Diaphragm: Diaphragm is intact. Stomach: Left-sided stomach is present. Kidneys: No hydronephrosis. Normal is less than 5 mm in 2nd trimester, less than 7 mm in 3rd trimester. Cord: 3-vessel cord has orthotopic insertion. Bladder: Normal in size. Extremities: All 4 extremities identified. IMPRESSION: Single living intrauterine with appropriate growth. Estimated weight at the 60th percentile. Posterior placenta without previa. Closed cervix and normal amniotic fluid volume. Due to positioning, there was suboptimal visualization of the nuchal region, spine, and difficult visualization of the right ventricular outflow tract. For short interval follow-up is recommended. There is otherwise normal anatomy. We strive to produce accurate, complete, and clear reports of imaging services. To assist us in improving patient care, this report was composed using standard report templates and voice recognition software. Therefore, it may contain abnormal punctuation, insertions and/or omissions. Occasional wrong-word or sound-alike substitutions may occur. Though we review the report and make efforts to correct it, we do recommend that the report be read carefully in proper context to recognize any text inaccuracies. Dictated by: Argentina Case M.D. on 09/25/2023 at 16:01 Approved by: Argentina Case M.D. on 09/25/2023 at 16:09
== END ==
LOC: US 15:24
PROVIDERS: PCP Nurse Practitioner; Referring Provider Obstetrics & Gynecology; Visit Provider Obstetrics & Gynecology
DX: Z34.02 Encounter for supervision of normal first pregnancy, second trimester (principal); Z3A.20 20 weeks gestation of pregnancy
CPT/HCPCS: 76811

== ENCOUNTER → 2023-09-28 14:44 | Outpatient (CLI) | payer OTHER, SELFPAY | PROVIDERS: PCP Nurse Practitioner; Visit Provider Obstetrics & Gynecology | DX: R31.9 Hematuria, unspecified (principal); R80.9 Proteinuria, unspecified | CPT/HCPCS: 87086 ==

== ENCOUNTER 2023-10-09 09:24 | Emergency (ER) | payer OTHER, SELFPAY ==
[2023-10-09] VITALS (12 sets, daily range): BP systolic 91–101; BP diastolic 49–58; PULSE 72–89; RESP 12–18; TEMP 36.9; O2SAT 99–100; BMI 25.4
--- NOTE | 2023-10-09 09:29 | DI.US.S_ITS ---
PROCEDURE: US OB >= 14 WEEKS FETUS INDICATIONS: had a seizure OUTSIDE/PRIOR DATING DATA: Last menstrual period (LMP): 05/06/2023. LMP-based estimated date of delivery (REY): 02/10/2024. First dating scan (date and location): 07/06/2023. Estimated date of delivery (REY) from first dating scan: 02/10/2024. The calculations are made using the clinical REY of 02/07/2024. TECHNIQUE: Real-time scanning was performed of the fetus, with image documentation and biometric measurements. COMPARISON: [facility], OB >= 14 WEEKS FETUS, 09/23/2023, 15:38. FINDINGS: General: A single living intrauterine gestation is present. Presentation: Vertex Placenta: Placental position is posterior , without previa. Amniotic fluid index: 13.7 cm, normal range is 5-24 cm. Single deepest vertical pocket is 3.7 cm. heart rate: 135 beats per minute. Maternal cervical canal: 3.3 cm long. Normal lower limit is 2.5 cm. biometrics: Clinically estimated gestational age: 22 weeks 2 days Anatomic survey: Nuchal skin fold: Normal at less than 6 mm between 14-21 weeks gestational age. Spine: No evidence for spina bifida. Heart: 4-chambered heart is present, with normal ventricular outflow tracts. IMPRESSION: Single live intrauterine with gestational age of 22 weeks 2 days. Previously identified suboptimally evaluated anatomic structures are within normal limits. We strive to produce accurate, complete, and clear reports of imaging services. To assist us in improving patient care, this report was composed using standard report templates and voice recognition software. Therefore, it may contain abnormal punctuation, insertions and/or omissions. Occasional wrong-word or sound-alike substitutions may occur. Though we review the report and make efforts to correct it, we do recommend that the report be read carefully in proper context to recognize any text inaccuracies. Dictated by: Rama Martins M.D. on 10/09/2023 at 11:17 Approved by: Rama Martins M.D. on 10/09/2023 at 11:19
--- NOTE | 2023-10-09 09:37 | ED.GENADULT ---
HPI - General Adult General Chief complaint: Seizure Stated complaint: Seizure Time Seen by Provider: 10/09/23 09:25 Source: patient, family and EMS Mode of arrival: EMS Limitations: no limitations History of Present Illness HPI narrative: Patient is a 27-year-old female. Has a history of migraines. Also has a history of epilepsy. Is on 2 antiseizure medications. Her last seizure was 5 months ago. She stated that her last seizure was prior to her current . She was followed by Neurology at [facility]. She was here with her . Per her 's report that they were sleeping in bed. He noticed that his started shaking then went into a generalized tonic-clonic seizure. He stated that it lasted approximately 2 minutes and then stopped on its own. She started to breathe better afterwards. EMS reports she was postictal afterwards. Here in the ER she reports she was feeling better. No abdominal pain, loss of fluid, vaginal bleeding. She has been taking all of her medications. She does not have a history of preeclampsia. She denies chest pain, shortness of breath Related Data Home Medications Medication Instructions Recorded Confirmed zonisamide 100 mg capsule 300 mg PO DAILY 01/11/22 09/28/23 lacosamide 200 mg tablet 200 mg PO BID 06/27/23 09/28/23 Previous Rx's Medication Instructions Recorded folic acid 1 mg tablet 5 mg (5 x 1 mg) PO DAILY 07/06/23 with high-risk for neural tube defect #150 tabs albuterol sulfate 90 mcg/actuation 2 puff inhalation Q4-6H PRN 08/03/23 aerosol inhaler shortness of breath or wheezing #8.5 grams Allergies Allergy/AdvReac Type Severity Reaction Status Date / Time clonazepam [CLONAZEPAM] AdvReac Severe REACTION Verified 09/28/23 10:48 WHEN TAKING FOR SEIZURES topiramate [From TOPAMAX] AdvReac Severe REACTION Verified 09/28/23 10:48 WHEN TAKING FOR SEIZURES Review of Systems Review of Systems ROS Unobtainable: All systems reviewed & are unremarkable except as noted in HPI and below Patient History Medical History Normal colonoscopy (~2022) Asthma Retroversion, uterus Depression (Unknown) Anxiety (Unknown) Surgical History (Updated 06/27/23 @ 14:01 by Edelmira Philippe RN) [place] teeth extracted H/O wrist surgery Family History (Updated 06/27/23 @ 14:06 by Edelmira Philippe RN) Grandfather Cancer Grandmother Cancer Father Cystinuria Kidney disease Unilateral blindness Mother Arthritis Grandmother Migraine Grandfather Arthritis Social History marital status: unmarried,living together number of children: 0 household members: significant other and friend(s) lives independently: Yes caregiver/support person: Yes housing: house pets and animals: Yes (dog) education level: college 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) current occupational exposures/hazards: No special freeman needs: No travel history: recent ([place]) seatbelt use: always helmet use: Yes water heater temp set < 120 deg: Yes working smoke detector in home: Yes fire extinguisher in home: Yes carbon monox detector in home: Yes firearms in home: No do you feel safe at home: Yes Smoking Status: Never smoker second hand exposure: Yes alcohol intake: former (rarely when not ) substance use type: does not use during the past year weight has: remained stable well-balanced diet: daily or most days daily servings fruits/ve-4 caffeine: Yes Type(s) of exercise: walking Smoking Status: Never smoker alcohol intake frequency: 0-2 drinks per day Substance Use Type: does not use Exam Initial Vital Signs Initial Vital Signs: Vital Signs Temperature 98.4 F 10/09/23 09:31 Pulse Rate 89 10/09/23 09:31 Respiratory Rate 18 10/09/23 09:31 Blood Pressure 101/56 L 10/09/23 09:31 Pulse Oximetry 100 10/09/23 09:31 Oxygen Delivery Method Room Air 10/09/23 09:31 Const General: cooperative, comfortable and No ill appearing HENMT Head: normal to inspection and normocephalic Resp Effort & Inspection: normal respiratory effort Auscultation: clear to auscultation bilaterally Cardio Rate: regular rate Rhythm: regular rhythm GI Other: Gravid abdomen Skin General: no rashes or lesions noted Neuro General: patient alert, patient awake, patient oriented x3 and moves all extremities Extrem General: normal to inspection and capillary refill normal Course Orders Ordered: ED Orders 10/09/23 09:29 US OB >= 14 weeks Fetus Stat 10/09/23 09:50 Complete Blood Count AUTO DIFF Stat Comprehensive Metabolic Panel Stat Ethanol (ETOH) Stat HCG Quantitative /Beta subunit Stat Lipase Stat Prolactin Stat Discontinued Medications Sodium Chloride (Normal Saline 0.9%) 1,000 mls @ 1,000 mls/hr IV BOLUS ONE Stop: 10/09/23 10:28 Last Admin: 10/09/23 10:15 Dose: 1,000 mls/hr Documented By: JUNG Vital Signs Vital signs: Vital Signs - 8 hr 10/09/23 09:31 10/09/23 09:56 10/09/23 09:57 Temperature 98.4 F Pulse Rate 89 85 Respiratory Rate 18 12 Blood Pressure 101/56 L 99/58 L Pulse Oximetry 100 99 Oxygen Delivery Method Room Air Room Air 10/09/23 09:57 10/09/23 10:00 10/09/23 10:00 Temperature Pulse Rate 85 84 Respiratory Rate 12 Blood Pressure 100/55 L Pulse Oximetry 99 100 Oxygen Delivery Method 10/09/23 10:47 10/09/23 10:47 10/09/23 11:00 Temperature Pulse Rate 73 73 Respiratory Rate 12 Blood Pressure 94/49 L Pulse Oximetry 99 99 Oxygen Delivery Method 10/09/23 11:00 Temperature Pulse Rate Respiratory Rate Blood Pressure 93/55 L Pulse Oximetry Oxygen Delivery Method Room Air Medical Decision Making Lab Data Lab results reviewed: Yes I reviewed the patient's lab results. 10/09/23 09:50 10/09/23 09:50 Labs: Lab Results 10/09/23 Range/Units 09:50 WBC 7.2 (4.5-11.0) X10^3/uL RBC 2.97 L (4.0-5.2) X10^6/uL Hgb 9.7 L (12.0-16.0) g/dL Hct 27.3 L (36-46) % MCV 92.0 (80-100) fL MCH 32.6 (26-34) PG MCHC 35.4 (30-36) % RDW 13.0 (11.6-14.8) % Plt Count 178 (150-400) X10^3/uL Neut % (Auto) 73.2 (50-75) % Lymph % (Auto) 17.6 L (25-40) % Anderson % (Auto) 7.5 (3-14) % Eos % (Auto) 1.4 L (2-4) % Baso % (Auto) 0.3 (0-2) % Neut # (Auto) 5300 (6400-7904) /uL Lymph # (Auto) 1300 (7100-1809) /uL Anderson # (Auto) 500 (0-900) /uL Eos # (Auto) 100 (0-450) /uL Baso # (Auto) 0 (0-100) /uL Sodium 135 L (137-145) mmol/L Potassium 3.6 (3.4-5.1) mmol/L Chloride 112 H (98-107) mmol/L Carbon Dioxide 18 L (22-32) mmol/L BUN 7 (7-17) mg/dL Creatinine 0.52 (0.52-1.04) mg/dL Estimated GFR > 60 (>60) mL/min BUN/Creatinine Ratio 13.5 (6-22) Glucose 83 (70-100) mg/dL Calcium 7.6 L (8.4-10.2) mg/dL Total Bilirubin 0.3 (0.2-1.3) mg/dL AST 22 (14-36) IU/L ALT 16 (<35) IU/L Alkaline Phosphatase 42 (38-126) U/L Total Protein 5.3 L (6.3-8.2) g/dL Albumin 2.9 L (3.5-5.0) g/dL Globulin 2.4 (1.7-4.1) g/dL Albumin/Globulin Ratio 1.2 (1.0-2.8) Lipase 47 (23-300) U/L Prolactin 312.6 H (3.0-18.6) ng/mL HCG, Quant 19951 mIU/mL Ethyl Alcohol < 10 ( - 10) mg/dL Imaging Data US - OB: Radiologist's Impression: PROCEDURE: US OB >= 14 WEEKS FETUS INDICATIONS: had a seizure OUTSIDE/PRIOR DATING DATA: Last menstrual period (LMP): 05/06/2023. LMP-based estimated date of delivery (REY): 02/10/2024. First dating scan (date and location): 07/06/2023. Estimated date of delivery (REY) from first dating scan: 02/10/2024. The calculations are made using the clinical REY of 02/07/2024. TECHNIQUE: Real-time scanning was performed of the fetus, with image documentation and biometric measurements. COMPARISON: [facility], OB >= 14 WEEKS FETUS, 09/23/2023, 15:38. FINDINGS: General: A single living intrauterine gestation is present. Presentation: Vertex Placenta: Placental position is posterior , without previa. Amniotic fluid index: 13.7 cm, normal range is 5-24 cm. Single deepest vertical pocket is 3.7 cm. heart rate: 135 beats per minute. Maternal cervical canal: 3.3 cm long. Normal lower limit is 2.5 cm. biometrics: Clinically estimated gestational age: 22 weeks 2 days Anatomic survey: Nuchal skin fold: Normal at less than 6 mm between 14-21 weeks gestational age. Spine: No evidence for spina bifida. Heart: 4-chambered heart is present, with normal ventricular outflow tracts. IMPRESSION: Single live intrauterine with gestational age of 22 weeks 2 days. Previously identified suboptimally evaluated anatomic structures are within normal limits. MDM Narrative Medical decision making narrative: Abdominal ultrasound shows single intrauterine live . Electrolytes are unremarkable. Afebrile. Has not hypertensive. This was not a eclamptic seizure. Based on her history we will not make any changes to her antiseizure medications for now. She was informed that she can not drive until she was cleared by her neurologist. There was no indication for admission to the hospital. She was now alert and oriented. Will have her contact her OB provider and neurologist tomorrow in the office is open to discuss follow-up. She was given return precautions. She expressed understanding and agreement. Discharge Plan Departure Patient Disposition: Home Clinical Impression: Seizure, Instructions: DI for Seizure Disorder -- Adult Activity Restrictions/Additional Instructions: Continue to take all of your medications as directed. We will hold on making any changes to your medications for now however tomorrow I recommend that you contact your neurologist and also your iron assorter doctor for a follow-up. No driving until you are cleared by your neurologist. Return to the emergency department for new symptoms. Prescriptions: No Action folic acid 1 mg tablet 5 mg PO DAILY Qty: 150 6RF lacosamide 200 mg tablet 200 mg PO BID albuterol sulfate 90 mcg/actuation HFA aerosol inhaler 2 puff INHALATION Q4-6H PRN (Reason: shortness of breath or wheezing) Qty: 8.5 3RF zonisamide 100 mg capsule 300 mg PO DAILY Referrals: Deborah Penn ARNP [Primary Care Provider] - Stand Alone Forms: Patient Portal/API
[2023-10-09 10:02] LABS: Add Manual Diff / Slide Review NO; Basophils Absolute Auto 0 /uL (0-100); Basophils Percent Auto 0.3 % (0-2); Eosinophils Absolute Auto 100 /uL (0-450); Eosinophils Percent Auto 1.4 % (2-4); Hematocrit 27.3 % (36-46); Hemoglobin 9.7 g/dL (12.0-16.0); Lymphocytes Absolute Auto 1300 /uL (1100-4500); Lymphocytes Percent Auto 17.6 % (25-40); Mean Corpuscular HGB Conc 35.4 % (30-36); Mean Corpuscular Hemoglobin 32.6 PG (26-34); Monocytes Absolute Auto 500 /uL (0-900); Monocytes Percent Auto 7.5 % (3-14); Neutrophils Absolute Auto 5300 /uL (1500-7000); Neutrophils Percent Auto 73.2 % (50-75); Platelet Count 178 X10^3/uL (150-400); Red Blood Cell Count 2.97 X10^6/uL (4.0-5.2); White Blood Cell Count 7.2 X10^3/uL (4.5-11.0)
[2023-10-09 10:13] LABS: Alanine Aminotransferase 16 IU/L (<35); Albumin 2.9 g/dL (3.5-5.0); Albumin Globulin Ratio 1.2 (1.0-2.8); Alkaline Phosphatase 42 U/L (38-126); Aspartate Aminotransferase 22 IU/L (14-36); BUN Creatinine Ratio 13.5 (6-22); Bilirubin Total 0.3 mg/dL (0.2-1.3); Blood Urea Nitrogen 7 mg/dL (7-17); Calcium 7.6 mg/dL (8.4-10.2); Carbon Dioxide 18 mmol/L (22-32); Chloride 112 mmol/L (98-107); Estimated Glomerular Filt Rate > 60 mL/min (>60); Ethanol (ETOH) < 10 mg/dL; Globulin 2.4 g/dL (1.7-4.1); Glucose 83 mg/dL (70-100); HEMOLYSIS 18 (0-50); Lipase 47 U/L (23-300); Potassium 3.6 mmol/L (3.4-5.1); Sodium 135 mmol/L (137-145); Total Protein 5.3 g/dL (6.3-8.2)
[2023-10-09] MEDS: SODIUM CHLORIDE 0.9% 1,000 ML 1000 ML IV (10:15)
[2023-10-09 10:30] LABS: Prolactin 312.6 ng/mL (3.0-18.6)
[2023-10-09 10:56] LABS: HCG Quantitative /Beta subunit 18144 mIU/mL
--- NOTE | 2023-10-09 11:53 | PC.NURSE ---
heart tone 135 per ultrasound
== END 2023-10-09 12:15 | disposition home or self-care (01) ==
PROVIDERS: Emergency Provider Emergency Medicine; PCP Nurse Practitioner
DX: G40.909 Epilepsy, unspecified, not intractable, without status epilepticus (principal); Z3A.22 22 weeks gestation of pregnancy
CPT/HCPCS: 76811; 80053; 80320; 83690; 84146; 84702; 85025; 96360; 96361; 99284

== ENCOUNTER → 2023-10-14 10:08 | Outpatient (CLI) | payer OTHER, SELFPAY ==
[2023-10-14 11:07] LABS: Hematocrit 30.8 % (36-46); Hemoglobin 11.1 g/dL (12.0-16.0); Mean Corpuscular Hemoglobin 32.8 PG (26-34); Mean Corpuscular Volume 91.2 fL (80-100); Platelet Count 223 X10^3/uL (150-400); Red Blood Cell Count 3.38 X10^6/uL (4.0-5.2); Red Cell Distribution Width 13.4 % (11.6-14.8)
[2023-10-14 11:12] LABS: Alanine Aminotransferase 16 IU/L (<35); Albumin 3.7 g/dL (3.5-5.0); Albumin Globulin Ratio 1.3 (1.0-2.8); Alkaline Phosphatase 54 U/L (38-126); Aspartate Aminotransferase 22 IU/L (14-36); BUN Creatinine Ratio 15.8 (6-22); Bilirubin Total 0.3 mg/dL (0.2-1.3); Blood Urea Nitrogen 9 mg/dL (7-17); Calcium 8.8 mg/dL (8.4-10.2); Carbon Dioxide 23 mmol/L (22-32); Chloride 108 mmol/L (98-107); Estimated Glomerular Filt Rate > 60 mL/min (>60); Globulin 2.8 g/dL (1.7-4.1); Glucose 88 mg/dL (70-100); HEMOLYSIS < 15 (0-50); Potassium 3.4 mmol/L (3.4-5.1); Sodium 136 mmol/L (137-145); Total Protein 6.5 g/dL (6.3-8.2)
== END ==
PROVIDERS: PCP Nurse Practitioner; Referring Provider Specialist; Visit Provider Specialist
DX: G40.319 Generalized idiopathic epilepsy and epileptic syndromes, intractable, without status epilepticus (principal); R56.9 Unspecified convulsions
CPT/HCPCS: 36415; 80053; 80203; 80235; 85027

== ENCOUNTER 2023-10-17 13:18 | Observation (INO) | payer OTHER, SELFPAY ==
--- NOTE | 2023-10-17 14:02 | PM.OBTRLD ---
Visit Information Visit Information Date of evaluation: 10/17/23 Primary OB Provider: Eusebia De Anda On-call OB Provider: Jaylin Christopher Comments/Additional reasons for admission: Pt is a 28yo at 23w3d her due to abdominal pain and concerns for leaking fluid. The pt is in her lower abdomen, cramping in nature. No vaginal bleeding. She is feeling her baby move regularly. [facility] Medical History Normal colonoscopy (~2022) Asthma Retroversion, uterus Depression (Unknown) Anxiety (Unknown) Surgical History (Updated 06/27/23 @ 14:01 by Edelmira Philippe RN) [place] teeth extracted H/O wrist surgery Family History (Updated 06/27/23 @ 14:06 by Edelmira Philippe RN) Grandfather Cancer Grandmother Cancer Father Cystinuria Kidney disease Unilateral blindness Mother Arthritis Grandmother Migraine Grandfather Arthritis Social History marital status: unmarried,living together number of children: 0 household members: significant other and friend(s) lives independently: Yes caregiver/support person: Yes housing: house pets and animals: Yes (dog) education level: college 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) current occupational exposures/hazards: No special freeman needs: No travel history: recent ([place]) seatbelt use: always helmet use: Yes water heater temp set < 120 deg: Yes working smoke detector in home: Yes fire extinguisher in home: Yes carbon monox detector in home: Yes firearms in home: No do you feel safe at home: Yes Smoking Status: Never smoker second hand exposure: Yes alcohol intake: former (rarely when not ) substance use type: does not use during the past year weight has: remained stable well-balanced diet: daily or most days daily servings fruits/ve-4 caffeine: Yes Type(s) of exercise: walking Evaluation Evaluation Baseline heart rate: 140 Variability: Moderate (11-25) monitor accelerations: Present Monitor Decelerations: Absent Non-invasive Membranes Rupture Test: negative Diagnosis, Plan/Disposition Final Diagnosis (1) Abdominal pain: Status: Acute (2) 23 weeks gestation of : Status: Acute Plan/Disposition Plan: Pt is a 28yo at 23w3d her due to abdominal pain and concerns for leaking fluid. Amniosure negative. U/A without evidence infection. Abdominal pain improved with oral fluids. Discussed adequate hydration at home. Stable for d/c home. OB Disposition: home
[2023-10-17 14:59] LABS: Appearance Urine UA CLEAR; Bilirubin Urine UA NEGATIVE (NEGATIVE); Color Urine UA YELLOW; Glucose Urine UA NEGATIVE (Negative); Ketones Urine UA NEGATIVE (NEGATIVE); Leukocyte Esterase Urine UA NEGATIVE (NEGATIVE); Nitrite Urine UA NEGATIVE (Negative); Occult Blood Urine UA NEGATIVE (Negative); Protein Urine UA NEGATIVE (Negative); Specific Gravity Urine UA 1.025 (1.000-1.035); Urobilinogen Urine UA 0.2 E.U./dL (0.2)
[2023-10-17 15:14] LABS: Bacteria Urine Occasional (0-1); RBC Urine None Seen (0-5/HPF); Urine Volume 10mL (spun); WBC Urine 0-1/HPF (0-5/HPF); pH Urine UA 5.5 (4.5-8.0)
[2023-10-17 15:15] LABS: Mucus Urine 2+ (Negative); Squamous Epithelial Cell Urine 0-1 /HPF (0-5/HPF)
[2023-10-17 15:18] LABS: Culture Indicated Urine Cult Not Indicated; Sperm Urine 1-5 SPERM /HPF
== END 2023-10-17 16:23 | disposition home or self-care (01) ==
PROVIDERS: Admitting Provider Family Medicine; PCP Nurse Practitioner; Referring Provider Family Medicine; Visit Provider Family Medicine
DX: O26.892 Other specified pregnancy related conditions, second trimester (principal); Z3A.23 23 weeks gestation of pregnancy; R10.9 Unspecified abdominal pain; Z03.71 Encounter for suspected problem with amniotic cavity and membrane ruled out
CPT/HCPCS: 59025; 81001; 84112; G0378; G0379

== ENCOUNTER → 2023-10-21 10:45 | Outpatient (CLI) | payer OTHER, SELFPAY ==
[2023-10-21 15:03] LABS: GTT (PREG) 1 Hour PP 50gm Dose 86 mg/dL (76-139)
== END ==
LOC: LAB 10:46
PROVIDERS: PCP Nurse Practitioner; Referring Provider Obstetrics & Gynecology; Visit Provider Obstetrics & Gynecology
DX: Z34.02 Encounter for supervision of normal first pregnancy, second trimester (principal); Z3A.26 26 weeks gestation of pregnancy
CPT/HCPCS: 36415; 82950; 86850

== ENCOUNTER 2023-11-07 21:13 | Observation (INO) | payer OTHER, SELFPAY ==
[2023-11-07 21:35] LABS: Add Manual Diff / Slide Review NO; Basophils Absolute Auto 0 /uL (0-100); Basophils Percent Auto 0.1 % (0-2); Eosinophils Absolute Auto 100 /uL (0-450); Eosinophils Percent Auto 1.1 % (2-4); Hematocrit 31.9 % (36-46); Hemoglobin 11.2 g/dL (12.0-16.0); Lymphocytes Absolute Auto 2700 /uL (1100-4500); Lymphocytes Percent Auto 23.7 % (25-40); Mean Corpuscular HGB Conc 35.1 % (30-36); Mean Corpuscular Hemoglobin 32.7 PG (26-34); Mean Corpuscular Volume 93.3 fL (80-100); Monocytes Absolute Auto 800 /uL (0-900); Monocytes Percent Auto 7.2 % (3-14); Neutrophils Absolute Auto 7800 /uL (1500-7000); Neutrophils Percent Auto 67.9 % (50-75); Platelet Count 227 X10^3/uL (150-400); Red Blood Cell Count 3.42 X10^6/uL (4.0-5.2); Red Cell Distribution Width 13.3 % (11.6-14.8); White Blood Cell Count 11.5 X10^3/uL (4.5-11.0)
[2023-11-07 21:42] LABS: Alanine Aminotransferase 17 IU/L (<35); Albumin 3.5 g/dL (3.5-5.0); Albumin Globulin Ratio 1.2 (1.0-2.8); Alkaline Phosphatase 62 U/L (38-126); Aspartate Aminotransferase 20 IU/L (14-36); BUN Creatinine Ratio 9.5 (6-22); Bilirubin Total 0.3 mg/dL (0.2-1.3); Blood Urea Nitrogen 8 mg/dL (7-17); Calcium 8.4 mg/dL (8.4-10.2); Carbon Dioxide 18 mmol/L (22-32); Chloride 107 mmol/L (98-107); Estimated Glomerular Filt Rate > 60 mL/min (>60); Glucose 82 mg/dL (70-100); HEMOLYSIS < 15 (0-50); Potassium 3.6 mmol/L (3.4-5.1); Sodium 134 mmol/L (137-145); Total Protein 6.5 g/dL (6.3-8.2)
== END 2023-11-07 23:36 | disposition home or self-care (01) ==
PROVIDERS: Obstetrics & Gynecology; Admitting Provider Nurse Practitioner; PCP Nurse Practitioner; Referring Provider Nurse Practitioner; Visit Provider Nurse Practitioner
DX: O99.352 Diseases of the nervous system complicating pregnancy, second trimester (principal); G40.909 Epilepsy, unspecified, not intractable, without status epilepticus; Z3A.26 26 weeks gestation of pregnancy
CPT/HCPCS: 59050; 80053; 80203; 80235; 85025; G0378; G0379

== ENCOUNTER → 2024-01-18 13:44 | Outpatient (CLI) | payer OTHER, SELFPAY ==
[2024-01-19 15:36] LABS: Strep Grp B PCR NEG for Grp B Strep
== END ==
PROVIDERS: PCP Nurse Practitioner; Visit Provider Specialist
DX: Z34.03 Encounter for supervision of normal first pregnancy, third trimester (principal); Z3A.36 36 weeks gestation of pregnancy
CPT/HCPCS: 87653

== ENCOUNTER 2024-02-06 14:53 | Observation (INO) | payer OTHER, SELFPAY ==
--- NOTE | 2024-02-06 15:31 | P.TNLD_ITS ---
Visit Information Visit Information Date of evaluation: 02/06/24 Primary OB Provider: Marian Pulliam Reason for Evaluation: Yes rupture of membranes PFSH Medical History Normal colonoscopy (~2022) Asthma Retroversion, uterus Depression (Unknown) Anxiety (Unknown) Surgical History (Updated 06/27/23 @ 14:01 by Edelmira Philippe, RN) [place] teeth extracted H/O wrist surgery Family History (Updated 06/27/23 @ 14:06 by Edelmira Philippe, RN) Grandfather Cancer Grandmother Cancer Father Cystinuria Kidney disease Unilateral blindness Mother Arthritis Grandmother Migraine Grandfather Arthritis Social History marital status: unmarried,living together number of children: 0 household members: significant other and friend(s) lives independently: Yes caregiver/support person: Yes housing: house pets and animals: Yes (dog) education level: college 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) current occupational exposures/hazards: No special freeman needs: No travel history: recent ([place]) seatbelt use: always helmet use: Yes water heater temp set < 120 deg: Yes working smoke detector in home: Yes fire extinguisher in home: Yes carbon monox detector in home: Yes firearms in home: No do you feel safe at home: Yes Smoking Status: Never smoker second hand exposure: Yes alcohol intake: former (rarely when not ) substance use type: does not use during the past year weight has: remained stable well-balanced diet: daily or most days daily servings fruits/ve-4 caffeine: Yes Type(s) of exercise: walking Evaluation Evaluation Baseline heart rate: 120 Variability: Moderate (11-25) monitor accelerations: Present Monitor Decelerations: Absent Uterine Contraction Intensity: Mild Category of Tracing: Reactive Non-invasive Membranes Rupture Test: negative Diagnosis, Plan/Disposition Final Diagnosis (1) Suspected rupture of membranes not found for normal first : Status: Acute Plan/Disposition Plan: Follow up in clinic as scheduled. Confirmed scheduled for induction on 02/15. OB Disposition: home
== END 2024-02-06 15:40 | disposition home or self-care (01) ==
PROVIDERS: Admitting Provider Student in an Organized Health Care Education/Training Program; PCP Family Medicine; Referring Provider Student in an Organized Health Care Education/Training Program; Visit Provider Student in an Organized Health Care Education/Training Program
DX: Z03.71 Encounter for suspected problem with amniotic cavity and membrane ruled out (principal)
CPT/HCPCS: 59025; 84112; G0378; G0379

== ENCOUNTER 2024-02-15 19:27 | Inpatient (IN) | payer OTHER, SELFPAY ==
[2024-02-15 19:29] VITALS: BP 118/61
[2024-02-15 20:11] LABS: Add Manual Diff / Slide Review NO; Basophils Absolute Auto 0 /uL (0-100); Basophils Percent Auto 0.2 % (0-2); Eosinophils Absolute Auto 100 /uL (0-450); Eosinophils Percent Auto 0.8 % (2-4); Hematocrit 33.7 % (36-46); Hemoglobin 12.1 g/dL (12.0-16.0); Lymphocytes Absolute Auto 2300 /uL (1100-4500); Lymphocytes Percent Auto 24.4 % (25-40); Mean Corpuscular Volume 94.6 fL (80-100); Monocytes Absolute Auto 700 /uL (0-900); Neutrophils Absolute Auto 6200 /uL (1500-7000); Neutrophils Percent Auto 66.6 % (50-75); Platelet Count 190 X10^3/uL (150-400); Red Blood Cell Count 3.56 X10^6/uL (4.0-5.2); White Blood Cell Count 9.3 X10^3/uL (4.5-11.0)
[2024-02-15] MEDS: miSOPROStoL 25 MCG TABLET VAG (20:34)
--- NOTE | 2024-02-16 07:18 | P.HPOB_ITS ---
OB HPI Date/Time Date of admission: 02/15/24 Date Patient Seen: 02/16/24 Time Patient Seen: 07:18 History of Present Condition Chief complaint: induction REY Calculator 2 Estimated Delivery Date Method Current WG Current Estimate 02/10/24 LMP (Certain) 40w 6d Estimated Gestational Age (weeks): 40+6 : 1 Para: 0 care: good care, initiated at week # (8), number of visits (15) and pounds weight gain (41) Dating criteria OB: LMP confirmed by 1st trimester US Ultrasounds: normal 1st trimester US and normal mid trimester US Obstetrical complications: none Medical complications OB: neurological (seizure disorder, 2 seizures during the ) Indications Indication for induction OB: medical complication (seizure disorder) and post dates Preadmission Labs Last OB Lab Results: 2 Blood Type A Negative 02/15/24 20:02 Antibody Screen Negative 02/15/24 20:02 Hct 33.7 % (36-46) L 02/15/24 20:02 Hgb 12.1 g/dL (12.0-16.0) 02/15/24 20:02 Hep Bs Antigen Negative s/c (NEGATIVE) 07/15/23 11:11 Hepatitis C Antibody Negative s/c (NEGATIVE) 07/15/23 11:11 Rubella Antibody 36.6 IU/mL (>15) 07/15/23 11:11 VZV IgG Antibody 418 index (Immune >165) 07/15/23 11:11 Glucose 1 Hr 50 gm 86 mg/dL (76-139) 10/21/23 12:13 Group B Strep (PCR) Neg for grp b strep 01/18/24 13:40 -: Chlamydia screen: negative, Gonorrhea screen: negative and Urine: negative -: PAP smear: Normal Genetic Screens: Cell-free DNA: Normal (normal male) and Alpha-fetoprotein: Normal External Labs -: Urine: negative Evaluation Evaluation Baseline heart rate: 122 Variability: Moderate (11-25) monitor accelerations: Present Monitor Decelerations: Absent Contraction Frequency (minutes): 2 Uterine Contraction Intensity: Mild Status: Category l Dilation (cm): 3 Effacement (%): 85 Dilation: 3-4 cm Effacement: >/=80% station: 0 Position of cervix: mid Consistency: soft Jacobsen score: 10 [facility] Medical History Normal colonoscopy (~2022) Asthma Retroversion, uterus Depression (Unknown) Anxiety (Unknown) Surgical History (Updated 06/27/23 @ 14:01 by Edelmira Philippe, RN) [place] teeth extracted H/O wrist surgery Family History (Updated 06/27/23 @ 14:06 by Edelmira Philippe RN) Grandfather Cancer Grandmother Cancer Father Cystinuria Kidney disease Unilateral blindness Mother Arthritis Grandmother Migraine Grandfather Arthritis Social History marital status: unmarried,living together number of children: 0 household members: significant other and friend(s) lives independently: Yes caregiver/support person: Yes housing: house pets and animals: Yes (dog) education level: college 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) current occupational exposures/hazards: No special freeman needs: No travel history: recent ([place]) seatbelt use: always helmet use: Yes water heater temp set < 120 deg: Yes working smoke detector in home: Yes fire extinguisher in home: Yes carbon monox detector in home: Yes firearms in home: No do you feel safe at home: Yes Smoking Status: Never smoker second hand exposure: Yes alcohol intake: former (rarely when not ) substance use type: does not use during the past year weight has: remained stable well-balanced diet: daily or most days daily servings fruits/ve-4 caffeine: Yes Type(s) of exercise: walking Meds Home Medications and Allergies Home Medications Medication Instructions Recorded Confirmed Type zonisamide 100 mg capsule 300 mg PO DAILY 01/11/22 02/15/24 History lacosamide 200 mg tablet 200 mg PO BID 06/27/23 02/15/24 History albuterol sulfate 90 mcg/actuation 2 puff inhalation Q4-6H PRN 08/03/23 02/15/24 Rx aerosol inhaler shortness of breath or wheezing #8.5 grams ferrous gluconate 236 mg (27 mg 236 mg PO DAILY Anemia #90 tabs 10/14/23 02/15/24 Rx iron) tablet breast pump #1 ea 11/23/23 02/15/24 Rx folic acid 1 mg tablet See Rx Instructions .Route 02/11/24 02/15/24 Rx .COMPLEX #150 tabs Allergies Allergy/AdvReac Type Severity Reaction Status Date / Time clonazepam [CLONAZEPAM] AdvReac Severe REACTION Verified 02/15/24 11:29 WHEN TAKING FOR SEIZURES topiramate [From TOPAMAX] AdvReac Severe REACTION Verified 02/15/24 11:29 WHEN TAKING FOR SEIZURES OB Exam Narrative Exam Narrative: Generally: Patient is sitting up in bed, no acute distress Lungs: Clear to auscultation bilaterally Cardiovascular: Regular rate and rhythm Fundal height: 40 cm Estimated weight: 7 lb Extremities: Trace edema Objective Labs 02/15/24 20:02 Labs: Laboratory Results - last 24 hr 02/15/24 20:02 WBC 9.3 RBC 3.56 L Hgb 12.1 Hct 33.7 L MCV 94.6 MCH 34.0 MCHC 36.0 RDW 14.0 Plt Count 190 Neut % (Auto) 66.6 Lymph % (Auto) 24.4 L [place] % (Auto) 8.0 Eos % (Auto) 0.8 L Baso % (Auto) 0.2 Neut # (Auto) 6200 Lymph # (Auto) 2300 [place] # (Auto) 700 Eos # (Auto) 100 Baso # (Auto) 0 Blood Type A Negative Antibody Screen Negative Assessment and Plan Assessment and Plan Assessment and Plan narrative: Assessment: 28-year-old 1 para 0 at 40-,6/7 weeks gestation status post 1 dose Cytotec vaginally Negative group B strep Favorable cervix Seizure disorder Plan: We will have diazepam on the unit in case of seizure during delivery We will palpate these contractions over the next 30 minutes to decide on Pitocin We will consider artificial rupture of membranes mid morning Expected management to spontaneous vaginal delivery Time-Based Coding :: [TOTAL MINUTES] spent with patient and on the chart (including review of chart, obtaining history, exam, reviewing outside data, placing orders, documenting exam and treatment plan, and counseling patient) on [DATE].
[2024-02-16] MEDS: LACTATED RINGERS 1,000 ML 100 ML IV ×3 (08:41→23:20)
[2024-02-16] MEDS: OXYTOCIN PREMIX 30 UNIT/500 ML PLAST..BAG IV (08:42)
--- NOTE | 2024-02-16 13:34 | PM.OBPNLAB ---
Date/Time Date Patient Seen: 02/16/24 Time Patient Seen: 13:34 Pain Control Pain control: tolerating well Comments: Patient declines AROM Pelvic Exam Dilation (cm): 3 Effacement (%): 85 station: +1 Amniotic membrane status: Intact Contractions Contractions on admission: none Monitor mode: External Pitocin rate (mU/min): 9 Contraction frequency (min): 2 Contraction duration (min): 1 Contraction pattern: Regular Contraction intensity: Moderate Status status: Category l Heart Rate Baseline: 122 Monitor Accelerations: Present Monitor Decelerations: Absent Monitor Variability: Moderate Assessment and Plan Assessment: induction ongoing Plan: continuous present management Comments: Will recheck at 1530 and reassess for AROM
--- NOTE | 2024-02-16 16:40 | PM.OBPNLAB ---
Date/Time Date Patient Seen: 02/16/24 Time Patient Seen: 16:00 Pain Control Pain control: tolerating well Pelvic Exam Dilation (cm): 3 Effacement (%): 85 station: +1 Amniotic membrane status: Bulging Contractions Contractions on admission: none Monitor mode: External Pitocin rate (mU/min): 13 Contraction frequency (min): 3 Contraction duration (min): 1 Contraction pattern: Regular Contraction intensity: Moderate Status status: Category l Heart Rate Baseline: 122 Monitor Accelerations: Present Monitor Decelerations: Absent Monitor Variability: Moderate Assessment and Plan Assessment: induction ongoing Comments: AROM with clear amniotic fluid Expectant management to
--- NOTE | 2024-02-16 17:39 | PM.AN.REGBLK ---
Regional Block Pre-procedure Procedure: Continuous Lumbar Epidural for L&D Attending OB provider: Eusebia De Anda PMH/ROS narrative: at 40+6, IOL, asthma, seizure disorder (2 seizures during ). ASA Class: II Labs: Hct 33.7 % (36-46) L 02/15/24 20:02 Plt Count 190 X10^3/uL (150-400) 02/15/24 20:02 Medications: Current Medications Generic Name Dose Route Start Last Admin Trade Name Freq PRN Reason Stop Dose Admin Calcium Carbonate 1,000 mg 02/15/24 19:37 Calcium Carbonate 500 Mg Tab PO Q2HR PRN Dyspepsia Carboprost Tromethamine 250 mcg 02/15/24 19:37 Carboprost 250 Mcg/Ml Ampul IM Q90M PRN Bleeding Fentanyl 50 mcg 02/15/24 19:37 Fentanyl 100 Mcg/2 Ml Inj IV Q1H PRN Pain, Moderate (4-6) Oxytocin/Lactated Ringer's 30 unit in 500 mls @ 200 mls/hr 02/15/24 19:37 Oxytocin Premix IV CONT PRN Bleeding Protocol Tranexamic Acid 1,000 mg/ 100 mls @ 600 mls/hr 02/15/24 19:37 Sodium Chloride IV NOW PRN Bleeding Oxytocin/Lactated Ringer's 30 unit in 500 mls @ 2 mls/hr 02/15/24 19:45 02/16/24 08:42 Oxytocin Premix IV 2 milliunit/min TITRATE FRED 2 mls/hr Administration Protocol 2 MILLIUNIT/MIN Lidocaine HCl 20 ml 02/15/24 19:37 Lidocaine 1% 20 Ml INJ INTRA-OP PRN Post Delivery Methylergonovine Maleate 0.2 mg 02/15/24 19:37 Methylergonovine 0.2 Mg Tablet PO Q6HR PRN Heavy Bleeding Methylergonovine Maleate 0.2 mg 02/15/24 19:37 Methylergonovine 0.2 Mg/Ml Vial IM NOW PRN Bleeding Mineral Oil 30 ml 02/15/24 19:37 Mineral Oil 30 Ml Udc TOP PRN PRN Version Misoprostol 25 mcg 02/15/24 19:37 02/15/24 20:34 Misoprostol 25 Mcg Tablet VAG 25 mcg Q4H PRN Administration cervical ripening Naloxone HCl 0.2 mg 02/15/24 19:37 Naloxone 0.4 Mg/Ml Vial IV Q2MIN PRN Opiate Reversal Doxylamine (Unisom) 1 each 02/16/24 21:00 25mg Tablet PO BEDTIME [facility] Lacosamide 200mg 1 each 02/16/24 21:00 Tablet PO BID FRED Lacosamide 50mg 1 each 02/16/24 21:00 Tablet PO BEDTIME [facility] Ondansetron HCl 4 mg 02/15/24 19:37 Ondansetron 4 Mg/2 Ml Inj IV Q4HR PRN Nausea And Vomiting Oxytocin 10 unit 02/15/24 19:37 Oxytocin 10 Unit/Ml Vial IM NOW PRN Bleeding Vit/Calcium/Iron/Folic Ac 1 tab 02/16/24 09:00 Vit,Calc/Iron/Folic 1 Tablet PO DAILY FRED Zonisamide 200 mg 02/16/24 09:00 Zonisamide 100 Mg Capsule PO BID [facility] Allergies: Allergies Allergy/AdvReac Type Severity Reaction Status Date / Time clonazepam [CLONAZEPAM] AdvReac Severe REACTION Verified 02/15/24 11:29 WHEN TAKING FOR SEIZURES topiramate [From TOPAMAX] AdvReac Severe REACTION Verified 02/15/24 11:29 WHEN TAKING FOR SEIZURES Procedure Insertion date: 02/16/24 Insertion time: 17:53 Prep/Local: betadine x3 and 1% lidocaine Interspace: L34 Patient position: sitting Needle: 18 gauge Hustead (CSE: 27g Pencan through Hustead, clear CSF, 1mL 0.25% MPF bupiv) Loss of resistance with: saline BALDEMAR at (cm): 4 Catheter placed at SKIN (cm): 10 Catheter in SPACE (cm): 6 Insertion: No CSF, No Blood, No Paresthesia with insertion, No Paresthesia with injection and No Test dose reaction Initial Medications TEST DOSE time: 17:55 TEST DOSE: 1.5% lidocaine with epinephrine 1:200k (mL): 3 BOLUS DOSE time: 18:03 BOLUS DOSE (mL): 4 BOLUS DOSE med: other (infusate) Infusion INFUSION: 0.125% bupivacaine and with fentanyl 2 mcg/mL Initial rate (mL/hr): 8 Subsequent interventions: PCEA@8+4 Post-procedure Anesthesia date START: 02/16/24 Anesthesia time START: 17:40 Anesthesia date END: 11/15/24 Anesthesia time END: 05:00 Post-procedure Anesthesia Assessment: Yes CV function: HR/BP stable, Yes Resp function: RR/sat/airway adequate, Yes Post-op hydration adequate, Yes Pain control adequate, Yes Nausea & vomiting absent, Yes Temperature > 36 C, Yes Mental status appropriate and No Anesthesia complications
[2024-02-16] MEDS: ONDANSETRON 4 MG/2 ML INJ IV (17:46)
[2024-02-16] MEDS: ZONISAMIDE 100 MG CAPSULE 200 MG PO (20:26)
[2024-02-16] MEDS: DOXYLAMINE 25 MG 1 EACH PO (20:27)
[2024-02-16] MEDS: LACOSAMIDE 200 MG 1 EACH PO (20:27)
[2024-02-16] MEDS: FENT 2MCG/ML BUPIV 0.125% EPI 200 MCG/100 ML PLAST..BAG 8 MCG EPIDURAL (23:55)
--- NOTE | 2024-02-17 02:17 | PM.OBPNLAB ---
Date/Time Date Patient Seen: 02/17/24 Time Patient Seen: 02:17 Pain Control Pain control: epidural Pelvic Exam Dilation (cm): 10 Effacement (%): 100 station: +2 Amniotic membrane status: Ruptured Contractions Contractions on admission: none Monitor mode: External Pitocin rate (mU/min): 14 Contraction frequency (min): 3 Contraction duration (min): 1 Contraction pattern: Regular Contraction intensity: Strong/Firm Status status: Category l Heart Rate Baseline: 120 Monitor Accelerations: Present Monitor Decelerations: Absent Monitor Variability: Moderate Assessment and Plan Assessment: active labor Comments: Begin pushing Expectant management to
--- NOTE | 2024-02-17 05:32 | PM.OBPRVD ---
Events: Labor Induction Labor & Delivery Delivery date: 02/17/24 Cervical ripening method: per misoprostal protocol Induction method: per pitocin protocol Delivery augmentation: rupture of membranes Delivery monitor: external FHT and external uterine Route of delivery: Episiotomy description: None L&D Laceration Description: Labial (right and left, left near urethral meatus) and Superficial (left vaginal) Delivery repair: chromic Quantitative Blood Loss: 420 Anesthesia Type: Epidural Complications: None Narrative: Patient complete and pushed for 2 hours and 29 minutes. At 4:45 a.m., a live male delivered spontaneously in the LOLY presentation, over an intact perineum. No nuchal cord. The remainder of the body delivered without difficulty and was placed on mom's abdomen. The cord was double clamped and cut after it stopped pulsing. Pitocin was given in the IV fluids right after the delivery. Cord bloods were obtained. The placenta delivered intact with a three-vessel cord at 4:57 a.m.. The fundus was massaged to firm. The perineum and vagina were inspected and there were bilateral labial lacerations and a left superficial vaginal laceration. All of this was repaired with 2 0 chromic in the usual fashion. Hemostasis was achieved. Apgars 8 at 1 minute and 9 at 5 minutes. weight 8 lb 15.3 oz. . Epidural analgesia. Mom and infant stable to recovery. [place] Baby 1: gender: Male Presentation: vertex Position: Right Occiput Anterior Placenta delivery description: Spontaneous Cord Vessel Description: 3 Vessels score (1 min): 8 score (5 min): 9 weight: 8 lb 15.3 oz Plan for aftercare: Routine care
[2024-02-17] MEDS: ZONISAMIDE 100 MG CAPSULE 300 MG PO (08:40)
[2024-02-17] MEDS: LACOSAMIDE 200 MG 1 EACH PO ×2 (08:41→20:24)
[2024-02-17] MEDS: WITCH HAZEL/GLYCERIN PADS 1 EACH TOP (08:43)
[2024-02-17] MEDS: DERMOPLAST SPRAY 20% 60 ML 1 SPRAY TOP (08:43)
[2024-02-17] MEDS: ZONISAMIDE 100 MG CAPSULE 200 MG PO (20:24)
[2024-02-18 05:59] LABS: Hematocrit 30.4 % (36-46); Hemoglobin 10.7 g/dL (12.0-16.0)
[2024-02-18] MEDS: LACOSAMIDE 200 MG 1 EACH PO (09:02)
[2024-02-18] MEDS: ZONISAMIDE 100MG CAPS 2 EACH PO (09:02)
[2024-02-18] MEDS: RHO(D) IMMUNE GLOBULIN 1,500 UNIT SYRINGE 1500 UNIT IM (09:05)
[2024-02-18 11:47] VITALS: PULSE 72; RESP 15; TEMP 37.1
--- NOTE | 2024-02-26 16:21 | PM.OBDS.1 ---
Discharge Providers Provider Date of admission: 02/15/24 19:27 Discharge Date: 02/18/24 Primary care physician: Shonna Perez MD Consults: 02/15/24 19:37 Consult to Anesthesiology Urgent Comment: Consulting Provider: Anesthesiologist Reason for consultation: Epidural Has provider been notified: No Discharge provider: Eusebia De Anda MD Summary Hospital Course Date Patient Seen: 02/18/24 Time Patient Seen: 09:30 Diagnoses: 40-6/7 weeks gestation Seizure disorder Cervical ripening with misoprostol Pitocin induction of labor Artificial rupture of membranes Epidural analgesia Spontaneous vaginal delivery Obstetrical laceration repair Hospital Course: Patient is a 28-year-old 1 para 1 who presented on February 15, 2024 in the evening for cervical ripening with misoprostol. She received 1 dose. On the morning of January 16, 2024 her cervix was favorable. She was heidi regularly. She declined artificial rupture of membranes at that time. Pitocin was initiated. She progressed to 5 cm. Artificial rupture membranes was performed with clear amniotic fluid. She received an epidural for pain management. at 4:45 a.m. she had a spontaneous vaginal delivery without complications. Her course was unremarkable and she was discharged home on February 18, 2024. Peripartum Data Laceration Description: Labial (bilateral) and Superficial (vaginal) Episiotomy description: None Procedures: Cervical ripening with misoprostol Pitocin augmentation of labor Artificial rupture of membranes Epidural analgesia Spontaneous vaginal delivery Repair of bilateral labial and superficial vaginal laceration complications: none 1: Gender: Male Disposition of : home Status at Discharge Cognitive/behavioral status at discharge: oriented Functional status at discharge: independent ambulation Overall status at discharge: patient is progressing back to baseline Time Spent with Patient Time attestation: Total time spent providing and/or coordinating discharge services: Time spent: Less than 30 minutes Objective Labs 02/18/24 05:43 Exam Narrative Exam Narrative: Generally: Patient is sitting up in bed, holding infant, no acute distress Fundus: Firm at U -1 Extremities: Trace edema, negative Homans Discharge Plan Discharge Plan Patient Disposition: Home Provider Discharge Comment: Call with fever, chills, were bleeding vaginally more than a pad in an hour Call with any redness, streaks, or pain in the calves, or shortness of breath Ibuprofen 600 mg every 6 hours as needed for cramping Tylenol 650 mg every 6 hours as needed for pain I encouraged the patient to call her neurologist on Tuesday to let them know that she had delivered, as her doses of antiseizure medicine were adjusted during the Discharge orders & Medications Prescriptions: Continued lacosamide 200 mg tablet 200 mg PO BID albuterol sulfate 90 mcg/actuation HFA aerosol inhaler 2 puff INHALATION Q4-6H PRN (Reason: shortness of breath or wheezing) Qty: 8.5 3RF zonisamide 100 mg capsule 300 mg PO DAILY Discontinued folic acid 1 mg tablet See Rx Instructions .ROUTE .COMPLEX Qty: 150 0RF Dose Instruction: TAKE 5 TABLETS BY MOUTH DAILY FOR WITH HIGH-RISK NEURAL TUBE DEFECT. Rx Instructions: TAKE 5 TABLETS BY MOUTH DAILY FOR WITH HIGH-RISK NEURAL TUBE DEFECT. ferrous gluconate 236 mg (27 mg iron) tablet 236 mg PO DAILY Qty: 90 0RF No Action (DME) breast pump Device See Rx Instructions .ROUTE .MEDSUPPLY Qty: 1 0RF Rx Instructions: [employer] Follow up/Referrals: Eusebia De Anda MD [Physician] - (My office will call patient on Tuesday to schedule 6 wk visit) Diet/Activity/Treatments Diet: Regular Activity: Nothing in the vagina until after 6 wk visit Skin/Wound/Dressing Care Report to your healthcare provider any signs of infection, such as:: chills, fever, increased pain and unusual drainage Visit Report/Discharge Packet Instructions: DI for Labor and Delivery, Vaginal Stand Alone Forms: Discharge: Care, Patient Portal/API, Stroke Signs & Symptoms Discharge Data Primary Care Provider: Shonna Perez
== END 2024-02-18 11:05 | disposition home or self-care (01) | DRG 807 ==
PROVIDERS: Admitting Provider Obstetrics & Gynecology; PCP Family Medicine; Referring Provider Obstetrics & Gynecology; Visit Provider Obstetrics & Gynecology
DX: O99.354 Diseases of the nervous system complicating childbirth (principal); Z37.0 Single live birth; G40.909 Epilepsy, unspecified, not intractable, without status epilepticus; O70.0 First degree perineal laceration during delivery; Z3A.40 40 weeks gestation of pregnancy
CPT/HCPCS: 36415; 59050; 59200; 59400; 59409; 85014; 85018; 85025; 85461; 86850; 86900; 86901; G0379; J2405; J2590; J2790

== ENCOUNTER → 2024-03-13 12:38 | Outpatient (CLI) | payer OTHER, SELFPAY ==
[2024-03-13 13:42] LABS: Hematocrit 42.2 % (36-46); Hemoglobin 14.6 g/dL (12.0-16.0); Mean Corpuscular HGB Conc 34.5 % (30-36); Mean Corpuscular Hemoglobin 32.3 PG (26-34); Mean Corpuscular Volume 93.5 fL (80-100); Platelet Count 288 X10^3/uL (150-400); Red Blood Cell Count 4.52 X10^6/uL (4.0-5.2); Red Cell Distribution Width 12.4 % (11.6-14.8); White Blood Cell Count 5.5 X10^3/uL (4.5-11.0)
[2024-03-13 13:59] LABS: Alanine Aminotransferase 42 IU/L (<35); Albumin 4.1 g/dL (3.5-5.0); Albumin Globulin Ratio 1.4 (1.0-2.8); Alkaline Phosphatase 93 U/L (38-126); Aspartate Aminotransferase 31 IU/L (14-36); Bilirubin Total 0.4 mg/dL (0.2-1.3); Blood Urea Nitrogen 22 mg/dL (7-17); Calcium 9.2 mg/dL (8.4-10.2); Carbon Dioxide 23 mmol/L (22-32); Chloride 105 mmol/L (98-107); Estimated Glomerular Filt Rate > 60 mL/min (>60); Glucose 88 mg/dL (70-100); HEMOLYSIS < 15 (0-50); Potassium 4.2 mmol/L (3.4-5.1); Sodium 135 mmol/L (137-145); Total Protein 7.1 g/dL (6.3-8.2)
== END ==
LOC: LAB 12:41
PROVIDERS: PCP Family Medicine; Referring Provider Pediatrics; Visit Provider Pediatrics
DX: G40.319 Generalized idiopathic epilepsy and epileptic syndromes, intractable, without status epilepticus (principal)
CPT/HCPCS: 36415; 80053; 80203; 80235; 85027

== ENCOUNTER → 2024-04-30 11:10 | Outpatient (CLI) | payer OTHER, SELFPAY ==
[2024-04-30 11:57] LABS: Add Manual Diff / Slide Review NO; Basophils Absolute Auto 0 /uL (0-100); Basophils Percent Auto 0.5 % (0-2); Eosinophils Absolute Auto 100 /uL (0-450); Eosinophils Percent Auto 2.1 % (2-4); Hematocrit 38.7 % (36-46); Hemoglobin 13.3 g/dL (12.0-16.0); Lymphocytes Absolute Auto 2200 /uL (1100-4500); Mean Corpuscular HGB Conc 34.4 % (30-36); Mean Corpuscular Hemoglobin 31.2 PG (26-34); Mean Corpuscular Volume 90.7 fL (80-100); Monocytes Absolute Auto 500 /uL (0-900); Monocytes Percent Auto 8.9 % (3-14); Neutrophils Absolute Auto 2300 /uL (1500-7000); Neutrophils Percent Auto 44.5 % (50-75); Platelet Count 297 X10^3/uL (150-400); Red Blood Cell Count 4.26 X10^6/uL (4.0-5.2); Red Cell Distribution Width 12.1 % (11.6-14.8); White Blood Cell Count 5.1 X10^3/uL (4.5-11.0)
[2024-04-30 12:15] LABS: Alanine Aminotransferase 42 IU/L (<35); Albumin 4.4 g/dL (3.5-5.0); Albumin Globulin Ratio 1.8 (1.0-2.8); Alkaline Phosphatase 72 U/L (38-126); Aspartate Aminotransferase 24 IU/L (14-36); BUN Creatinine Ratio 23.3 (6-22); Bilirubin Total 0.5 mg/dL (0.2-1.3); Blood Urea Nitrogen 17 mg/dL (7-17); Carbon Dioxide 21 mmol/L (22-32); Chloride 107 mmol/L (98-107); Estimated Glomerular Filt Rate > 60 mL/min (>60); Globulin 2.5 g/dL (1.7-4.1); Glucose 90 mg/dL (70-100); HEMOLYSIS < 15 (0-50); Potassium 3.9 mmol/L (3.4-5.1); Sodium 137 mmol/L (137-145); Total Protein 6.9 g/dL (6.3-8.2)
[2024-05-02 13:12] LABS: Zonisamide 13.8 ug/mL (10.0-40.0)
[2024-05-03 11:11] LABS: Lacosamide 14.7 ug/mL (5.0-10.0)
== END ==
PROVIDERS: PCP Family Medicine; Referring Provider Pediatrics; Visit Provider Pediatrics
DX: G40.309 Generalized idiopathic epilepsy and epileptic syndromes, not intractable, without status epilepticus (principal)
CPT/HCPCS: 36415; 80053; 80203; 80235; 85025

== ENCOUNTER → 2024-10-09 16:18 | Outpatient (CLI) | payer OTHER, SELFPAY | PROVIDERS: PCP Family Medicine; Visit Provider Family Medicine | DX: N93.9 Abnormal uterine and vaginal bleeding, unspecified (principal) | CPT/HCPCS: 87210 ==

== ENCOUNTER → 2024-10-09 16:44 | Outpatient (CLI) | payer OTHER, SELFPAY ==
[2024-10-09 17:34] LABS: Add Manual Diff / Slide Review NO; Hematocrit 39.9 % (36-46); Hemoglobin 14.0 g/dL (12.0-16.0); Lymphocytes Absolute Auto 2600 /uL (1100-4500); Mean Corpuscular HGB Conc 35.0 % (30-36); Mean Corpuscular Hemoglobin 30.7 PG (26-34); Mean Corpuscular Volume 87.7 fL (80-100); Platelet Count 283 X10^3/uL (150-400)
[2024-10-09 17:54] LABS: Alanine Aminotransferase 26 IU/L (<35); Albumin 4.5 g/dL (3.5-5.0); Albumin Globulin Ratio 1.5 (1.0-2.8); Alkaline Phosphatase 92 U/L (38-126); Blood Urea Nitrogen 16 mg/dL (7-17); Calcium 9.2 mg/dL (8.4-10.2); Carbon Dioxide 23 mmol/L (22-32); Chloride 105 mmol/L (98-107); Estimated Glomerular Filt Rate > 60 mL/min (>60); Globulin 3.0 g/dL (1.7-4.1); Glucose 89 mg/dL (70-99); HEMOLYSIS < 15 (0-50); Potassium 4.0 mmol/L (3.4-5.1); Sodium 137 mmol/L (137-145); Total Protein 7.5 g/dL (6.3-8.2)
[2024-10-09 18:12] LABS: Follicle Stimulating Hormone 4.57 mIU/mL
== END ==
PROVIDERS: PCP Family Medicine; Referring Provider Family Medicine; Visit Provider Family Medicine
DX: N93.9 Abnormal uterine and vaginal bleeding, unspecified (principal)
CPT/HCPCS: 36415; 80053; 83001; 83002; 84146; 85025; 87210

== ENCOUNTER → 2024-10-18 12:50 | Outpatient (CLI) | payer OTHER, SELFPAY ==
--- NOTE | 2024-10-18 12:50 | DI.US.S_ITS ---
PROCEDURE: US PELVIC COMPLETE INDICATIONS: abnormal uterine bleeding TECHNIQUE: Real-time scanning was performed of the pelvic organs, with image documentation. Additional endovaginal scanning was necessary due to incomplete visualization of the adnexal and endometrial structures by transabdominal scanning. COMPARISON: [facility], , US PELVIC COMPLETE, 05/03/2019, 10:32. FINDINGS: Uterus: Uterus is anteverted and normal in size at 9.0 x 3.8 x 5.4 cm. The myometrium is homogeneous. The endometrium measures 7 mm combined thickness. Ovaries: The right ovary measures 4.5 x 3.5 x 2.9 cm, with a calculated ovarian volume of 24 cc. The left ovary measures 4.8 x 1.9 x 4.1 cm, with a calculated ovarian volume of 19.3 cc. The ovaries have a normal sonographic appearance. Greater than 12 follicles can be seen in each ovary. No adnexal masses are seen. Other: No pathologic free abdominal or pelvic fluid. IMPRESSION: Enlarged ovaries with greater than 12 follicles per ovary, which can be seen in the clinical setting of PCOS. We strive to produce accurate, complete, and clear reports of imaging services. To assist us in improving patient care, this report was composed using standard report templates and voice recognition software. Therefore, it may contain abnormal punctuation, insertions and/or omissions. Occasional wrong-word or sound-alike substitutions may occur. Though we review the report and make efforts to correct it, we do recommend that the report be read carefully in proper context to recognize any text inaccuracies. Dictated by: Kieran Bermudez M.D. on 10/18/2024 at 15:54 Approved by: Kieran Bermudez M.D. on 10/18/2024 at 15:55
== END ==
PROVIDERS: PCP Family Medicine; Referring Provider Family Medicine; Visit Provider Family Medicine
DX: N93.9 Abnormal uterine and vaginal bleeding, unspecified (principal); N83.8 Other noninflammatory disorders of ovary, fallopian tube and broad ligament
CPT/HCPCS: 76830; 76856

== ENCOUNTER → 2024-10-26 15:09 | Outpatient (CLI) | payer OTHER, SELFPAY | PROVIDERS: PCP Family Medicine; Referring Provider Dermatology; Visit Provider Dermatology | DX: L30.9 Dermatitis, unspecified (principal) | CPT/HCPCS: 36415; 86038 ==

== ENCOUNTER → 2024-12-12 09:27 | Outpatient (CLI) | payer OTHER, SELFPAY ==
[2024-12-12 11:04] LABS: Add Manual Diff / Slide Review NO; Hematocrit 39.1 % (36-46); Hemoglobin 13.7 g/dL (12.0-16.0); Lymphocytes Absolute Auto 1500 /uL (1100-4500); Mean Corpuscular HGB Conc 35.0 % (30-36); Mean Corpuscular Hemoglobin 30.7 PG (26-34); Mean Corpuscular Volume 87.7 fL (80-100); Platelet Count 246 X10^3/uL (150-400)
[2024-12-12 11:29] LABS: Alanine Aminotransferase 31 IU/L (<35); Albumin 4.3 g/dL (3.5-5.0); Albumin Globulin Ratio 1.6 (1.0-2.8); Alkaline Phosphatase 82 U/L (38-126); Blood Urea Nitrogen 16 mg/dL (7-17); Calcium 8.9 mg/dL (8.4-10.2); Carbon Dioxide 21 mmol/L (22-32); Chloride 106 mmol/L (98-107); Estimated Glomerular Filt Rate > 60 mL/min (>60); Globulin 2.7 g/dL (1.7-4.1); Glucose 96 mg/dL (70-99); HEMOLYSIS < 15 (0-50); Potassium 4.0 mmol/L (3.4-5.1); Sodium 137 mmol/L (137-145); Total Protein 7.0 g/dL (6.3-8.2)
== END ==
PROVIDERS: PCP Family Medicine; Referring Provider Pediatrics; Visit Provider Pediatrics
DX: G40.319 Generalized idiopathic epilepsy and epileptic syndromes, intractable, without status epilepticus (principal)
CPT/HCPCS: 80053; 80203; 80235; 85025

== ENCOUNTER → 2025-01-19 10:11 | Outpatient (CLI) | payer OTHER, SELFPAY ==
[2025-01-19 11:09] LABS: Appearance Urine UA CLEAR; Bilirubin Urine UA NEGATIVE (NEGATIVE); Color Urine UA YELLOW; Glucose Urine UA NEGATIVE (Negative); Ketones Urine UA NEGATIVE (NEGATIVE); Leukocyte Esterase Urine UA NEGATIVE (NEGATIVE); Nitrite Urine UA NEGATIVE (Negative); Occult Blood Urine UA 3+ (Negative); Protein Urine UA NEGATIVE (Negative); Specific Gravity Urine UA 1.025 (1.000-1.035); Urobilinogen Urine UA 0.2 E.U./dL (0.2)
[2025-01-19 11:11] LABS: pH Urine UA 5.5 (4.5-8.0)
[2025-01-19 11:15] LABS: Culture Indicated Urine Cult Not Indicated; Reticulocyte Count, Percent 1.6 % (1.1-2.6)
[2025-01-19 11:16] LABS: Add Manual Diff / Slide Review NO; Hematocrit 39.5 % (36-46); Hemoglobin 13.9 g/dL (12.0-16.0); Lymphocytes Absolute Auto 1700 /uL (1100-4500); Mean Corpuscular HGB Conc 35.3 % (30-36); Mean Corpuscular Hemoglobin 30.2 PG (26-34); Mean Corpuscular Volume 85.8 fL (80-100); Platelet Count 236 X10^3/uL (150-400)
[2025-01-19 11:29] LABS: Alanine Aminotransferase 26 IU/L (<35); Albumin 4.5 g/dL (3.5-5.0); Albumin Globulin Ratio 1.6 (1.0-2.8); Alkaline Phosphatase 76 U/L (38-126); Blood Urea Nitrogen 16 mg/dL (7-17); Calcium 9.3 mg/dL (8.4-10.2); Carbon Dioxide 22 mmol/L (22-32); Chloride 104 mmol/L (98-107); Estimated Glomerular Filt Rate > 60 mL/min (>60); Globulin 2.9 g/dL (1.7-4.1); Glucose 114 mg/dL (70-99); HEMOLYSIS < 15 (0-50); Potassium 3.9 mmol/L (3.4-5.1); Sodium 137 mmol/L (137-145); Total Protein 7.4 g/dL (6.3-8.2)
== END ==
PROVIDERS: PCP Family Medicine; Referring Provider Family Medicine; Visit Provider Family Medicine
DX: R25.1 Tremor, unspecified (principal); R17 Unspecified jaundice
CPT/HCPCS: 36415; 80053; 81001; 82248; 83615; 85025; 85045

== ENCOUNTER → 2025-01-28 06:45 | Outpatient (CLI) | payer OTHER, SELFPAY ==
--- NOTE | 2025-01-28 06:48 | DI.US.S_ITS ---
PROCEDURE: US ABDOMEN COMPLETE INDICATIONS: abdominal pain TECHNIQUE: Real-time scanning was performed of the abdominal and retroperitoneal organs, with image documentation. COMPARISON: None. FINDINGS: Liver: Liver is normal in size and homogeneous in echotexture. Gallbladder: Unremarkable Biliary ducts: Intrahepatic bile ducts are non-dilated. Extrahepatic bile duct caliber measures 3 mm. Normal is 6-7 mm or less in diameter, or 10 mm or less post-cholecystectomy. Pancreas: Visualized portions of the pancreas are sonographically normal. Spleen: Prominent at 12 cm Kidneys: Kidneys are normal in size and echotexture. Right kidney measures 10 cm long; left kidney measures 11 cm long. No hydronephrosis or nephrolithiasis. No solid masses. Aorta: Visualized aorta is normal in caliber at less than 3 cm. Iliacs: Proximal common iliac arteries are normal in caliber at less than 2.5 cm. IVC: Intrahepatic inferior vena cava is patent. Miscellaneous: No free abdominal fluid. IMPRESSION: No significant or acute abdominal abnormality on ultrasound. Dictated by: Tai Shin M.D. on 01/28/2025 at 7:56 Approved by: Tai Shin M.D. on 01/28/2025 at 7:57
--- NOTE | 2025-01-28 08:19 | DI.MRI.S_ITS ---
PROCEDURE: MR HEAD/BRAIN WO/W CON INDICATIONS: tremors TECHNIQUE: Noncontrast axial T1 spin echo, axial T2 fast spin echo, sagittal and axial FLAIR, coronal T2 fast spin echo, axial gradient echo, axial diffusion and ADC through the brain. After the administration of contrast, axial and coronal and sagittal 3D VIBE or T1 spin echo with fat saturation through the brain. COMPARISON: None. FINDINGS: CSF Spaces: Basal cisterns are patent. No extra-axial fluid collections. Ventricles are normal in size and shape. Brain: No intracranial masses or hemorrhage. [place]/white matter interface is normal. Brainstem appears normal. Diffusion-weighted sequence is unremarkable without evidence of acute infarct. Normal intravascular flow voids are present. Skull and face: Calvarial marrow is normal in signal. Orbits appear normal. Sinuses: Sinuses and mastoids appear clear. IMPRESSION: Normal MRI of the brain Approved by: Cristiano Cortes M.D. on 01/28/2025 at 18:22
== END ==
PROVIDERS: PCP Family Medicine; Referring Provider Family Medicine; Visit Provider Family Medicine
DX: R25.1 Tremor, unspecified (principal); R10.84 Generalized abdominal pain
CPT/HCPCS: 70553; 76700; A9579

== ENCOUNTER → 2025-03-12 18:27 | Outpatient (CLI) | payer OTHER, SELFPAY ==
[2025-03-12 21:12] LABS: Urine N gonorrhoeae NOT DETECTED
[2025-03-12 21:34] LABS: Urine Chlamydia NOT DETECTED
== END ==
PROVIDERS: PCP Family Medicine; Referring Provider Nurse Practitioner Family; Visit Provider Nurse Practitioner Family
DX: N89.8 Other specified noninflammatory disorders of vagina (principal); R30.0 Dysuria; N90.89 Other specified noninflammatory disorders of vulva and perineum
CPT/HCPCS: 87086; 87210; 87252; 87491; 87591

== ENCOUNTER → 2025-03-13 17:46 | Outpatient (CLI) | payer OTHER, SELFPAY ==
[2025-03-13 19:01] LABS: TSH w/ Reflex to FT4 1.85 uIU/mL (0.47-4.68)
[2025-03-14 16:51] LABS: Hepatitis B Surface Antigen NEGATIVE s/c (NEGATIVE)
[2025-03-14 17:08] LABS: HIV 1 & 2 Ab/Ag 4th Gen Combo NEGATIVE (NEGATIVE); Hep C Virus Ab w/Reflex Quant NEGATIVE s/c (NEGATIVE)
== END ==
PROVIDERS: PCP Family Medicine; Referring Provider Nurse Practitioner Family; Visit Provider Nurse Practitioner Family
DX: N89.8 Other specified noninflammatory disorders of vagina (principal); R25.1 Tremor, unspecified
CPT/HCPCS: 36415; 84443; 86592; 86803; 87340; 87389; 87529

== ENCOUNTER 2025-03-19 17:56 | Emergency (ER) | payer OTHER, SELFPAY ==
[2025-03-19 18:07] VITALS: BP 119/64; PULSE 86; RESP 17; TEMP 36.9; O2SAT 98; BMI 29.2
--- NOTE | 2025-03-19 18:09 | ED_ITS ---
HPI - Female Genitourinary General Chief complaint: Urogenital-Female Stated complaint: uro genital female [facility] sent Time Seen by Provider: 03/19/25 18:09 History of Present Illness HPI Narrative: 29-year-old female patient, otherwise healthy, who was seen 5 days ago at the walk-in clinic for genital and rectal sores which were diagnosed as herpes and she was started on acyclovir. She was also started on cefdinir for a ?staph infection?. Her symptoms started about 6 days ago with vague discomfort and then painful blisters on her rectum and vulvar area. No previous STDs or herpes. She is sexually active with 1 male partner, her for 2 years. She was given no pain medication and she says the pain is intolerable but the walk-in clinic told her to go to the ER to be evaluated if she needed pain medication. She said she has had some blood from the sores in her rectum. She has a appointment with primary care in 6 days. Related Data Home Medications ?Medication ?Instructions ?Recorded ?Confirmed zonisamide 100 mg capsule 300 mg PO DAILY 01/11/2212/27 valproic acid 250 mg capsule 250 mg PO DAILY Seizures 02/21/25 03/12/25 betamethasone valerate 0.1 % topical 03/12/25 03/12/25 topical ointment divalproex 250 mg tablet,extended mg PO 03/12/2503/12 release 24 hr hydrocortisone 2.5 % topical topical ONCE PM 03/12/25 03/12/25 ointment ketoconazole 2 % topical cream applic topical QAM 12/2703/12/25 lacosamide 50 mg tablet mg PO 03/12/25 03/12/25 medroxyprogesterone 5 mg tablet 5 mg PO DAILY 03/12/25 03/12/25 Previous Rx's ?Medication ?Instructions ?Recorded albuterol sulfate 90 mcg/actuation 2 puff inhalation Q 4-6H PRN 08/03/23 aerosol inhaler shortness of breath or wheez ing #8.5 grams breast pump #1 ea 11/23/23 cetirizine 10 mg capsule (Allergy 10 mg PO DAILY PRN a llergy 06/26/24 Relief (cetirizine)) symptoms #30 caps cefdinir 300 mg capsule 300 mg PO BID #10 caps 12/11 /25 acyclovir 400 mg tablet 400 mg PO TID HSV-1 7 days # 21 tabs 03/16/25 acyclovir 5 %-hydrocortisone 1 % 1 applic topical 5XD 5 days #5 03/19/25 topical cream (Xerese) grams hydrocodone 5 mg-acetaminophen 325 1 tab PO Q4-6H PRN pain #14 tabs 03/19/25 mg tablet Allergies Allergy/AdvReac Type Severity Reaction Status Date / Time clonazepam (CLONAZEPAM) AdvReac Severe REACTION Verified 03/19/25 18:07 WHEN TAKING FOR SEIZURES topiramate (From TOPAMAX) AdvReac Severe REACTION Verified 03/19/25 18:07 WHEN TAKING FOR SEIZURES Patient History Medical History Normal colonoscopy (~2022) Asthma Retroversion, uterus Depression (Unknown) Anxiety (Unknown) Surgical History (Updated 06/27/23 @ 14:01 by Edelmira Philippe RN) [place] teeth extracted H/O wrist surgery Family History (Updated 06/27/23 @ 14:06 by Edelmira Philippe RN) Grandfather Cancer Grandmother Cancer Father Cystinuria Kidney disease Unilateral blindness Mother Arthritis Grandmother Migraine Grandfather Arthritis Exam Narrative Exam Narrative: General: Alert and conversant. [id number] distress. Appears well nourished and well hydrated Lungs: Clear to auscultation with good air movement. No wheezing, rales or rhonchi. No respiratory distress Cardiac: Regular rate and rhythm with no appreciable murmur or gallop Abdomen: Soft, nontender with no distention or masses. Normal bowel sounds. No rebound or guarding Genital exam: Patient has vesicles on the vulva, the introitus and the perirectal/anal area. No pustules Neuro: Alert and oriented. Cranial nerves, motor, sensory and cerebellar all grossly intact. No focal deficit Skin: Warm and normal color. No rashes Psychological: Normal affect and interaction. No evidence of delusion or psychosis. Normal mood. Initial Vital Signs Initial Vital Signs: Vital Signs Temperature 98.4 F 03/19/25 18:07 Pulse Rate 86 03/19/25 18:07 Respiratory Rate 17 03/19/25 18:07 Blood Pressure 119/64 03/19/25 18:07 Pulse Oximetry 98 03/19/25 18:07 Oxygen Delivery Method Room Air 03/19/25 18:07 Course Orders Ordered: ED Orders 03/19/25 19:45 Urinalysis and Microscopic Stat Discontinued Medications Hydrocodone Bitart/Acetaminophen (Hydrocodone/Acet 5/325 Prepack) 1 bottle MISC DIRECTED ONE Stop: 03/19/25 20:27 Last Admin: 03/19/25 20:31 Dose: 1 bottle Documented By: CARL Oxycodone HCl (Oxycodone Ir 5 Mg Tablet) 5 mg PO NOW ONE Stop: 03/19/25 18:13 Last Admin: 03/19/25 18:45 Dose: 5 mg Documented By: Vital Signs Vital signs: Vital Signs - 8 hr 03/19/25 18:07 03/19/25 18:38 03/19/25 18:40 Temperature 98.4 F Pulse Rate 86 69 Respiratory Rate 17 Blood Pressure 119/64 104/54 L Pulse Oximetry 98 98 Oxygen Delivery Method Room Air 03/19/25 18:40 Temperature Pulse Rate 71 Respiratory Rate Blood Pressure Pulse Oximetry 98 Oxygen Delivery Method Room Air MDM - Female Genitourinary Lab Data Labs: Lab Results 03/19/25 Range/Units 19:45 Urine Color Yellow Urine Appearance Sl cloudy Urine pH 6.5 (4.5-8.0) Ur Specific [place] 1.025 (1.000-1.035) Urine Protein Trace H (Negative) Urine Glucose (UA) Negative (Negative) g/dL Urine Ketones 1+ H (NEGATIVE) Urine Occult Blood Negative (Negative) Urine Nitrate Negative (Negative) Urine Bilirubin Negative (NEGATIVE) Urine Urobilinogen 0.2 (0.2) E.U./dL Ur Leukocyte Esterase Trace H (NEGATIVE) Urine RBC 0-1/hpf D (0-5/HPF) Urine WBC 1-5/hpf (0-5/HPF) Ur Squamous Epith Cells 10-30 /hpf H D (0-5/HPF) Urine Bacteria Many (>30) H (None) Urine Mucus 4+ H D (Negative) Ur Culture Indicated? Cult not indicated Vol Urine Centrifuged 10ml (spun) MDM Narrative Medical decision making narrative: Patient has genital rectal herpes simplex 1 virus and is currently on acyclovir. She has not had good pain control because known prescribed pain medicines for her. She will be given hydrocodone along with ibuprofen and acetaminophen. Prescriptions given and take-home pack. Also recommended barrier creams and acyclovir/steroid cream. Sitz baths. Follow up with primary care for further management. Return to the ER if worse Discharge Plan Departure Patient Disposition: Home Clinical Impression: Genital herpes Instructions: Genital Herpes Activity Restrictions/Additional Instructions: Plan: Continue acyclovir as prescribed. May try Sitz baths, barrier cream and possibly acyclovir/hydrocortisone cream/ointment as prescribed. Otherwise [id number] and prescription pain medication. May also use stool softeners. Follow up with your provider as scheduled. Prescriptions: New hydrocodone-acetaminophen 5-325 mg tablet 1 tab PO Q4-6H PRN (Reason: pain) Qty: 14 0RF Xerese 5-1 % cream 1 applic topical 5XD 5 Days Qty: 5 0RF No Action valproic acid 250 mg capsule 250 mg PO DAILY Patient Comments: Will be taking 750 daily betamethasone valerate 0.1 % ointment topical medroxyprogesterone 5 mg tablet 5 mg PO DAILY hydrocortisone 2.5 % ointment topical ONCE PM ketoconazole 2 % cream topical QAM divalproex 250 mg tablet extended release 24 hr PO lacosamide 50 mg tablet PO Allergy Relief (cetirizine) 10 mg capsule 10 mg PO DAILY PRN (Reason: allergy symptoms) Qty: 30 1RF cefdinir 300 mg capsule 300 mg PO BID Qty: 10 0RF acyclovir 400 mg tablet 400 mg PO TID 7 Days Qty: 21 0RF albuterol sulfate 90 mcg/actuation HFA aerosol inhaler 2 puff INHALATION Q4-6H PRN (Reason: shortness of breath or wheezing) Qty: 8.5 3RF zonisamide 100 mg capsule 300 mg PO DAILY (DME) breast pump Device See Rx Instructions .ROUTE .MEDSUPPLY Qty: 1 0RF Rx Instructions: [employer] Referrals: Shonna Perez MD [Primary Care Provider, Family Practice] Stand Alone Forms: Patient Portal/API
[2025-03-19 18:38] VITALS: PULSE 69; O2SAT 98
[2025-03-19 18:40] VITALS: BP 104/54; PULSE 71; O2SAT 98
[2025-03-19 19:58] LABS: Appearance Urine UA SL CLOUDY; Bilirubin Urine UA NEGATIVE (NEGATIVE); Color Urine UA YELLOW; Glucose Urine UA NEGATIVE (Negative); Ketones Urine UA 1+ (NEGATIVE); Leukocyte Esterase Urine UA TRACE (NEGATIVE); Nitrite Urine UA NEGATIVE (Negative); Occult Blood Urine UA NEGATIVE (Negative); Protein Urine UA TRACE (Negative); Specific Gravity Urine UA 1.025 (1.000-1.035); Urobilinogen Urine UA 0.2 E.U./dL (0.2)
[2025-03-19 19:59] LABS: pH Urine UA 6.5 (4.5-8.0)
[2025-03-19 20:05] LABS: Culture Indicated Urine Cult Not Indicated
== END 2025-03-19 20:34 | disposition home or self-care (01) ==
PROVIDERS: Emergency Provider Emergency Medicine; PCP Family Medicine
DX: A60.00 Herpesviral infection of urogenital system, unspecified (principal)
CPT/HCPCS: 81001; 99283